=== PATIENT | male | born 1970 | race Caucasian/White ===

== ENCOUNTER 2016-09-10 12:31 | Inpatient (IN) | payer MEDICARE, OTHER ==
[~2016-09-10] VITALS: Ht 170.2 cm; Wt 57.3 kg
[2016-09-10] VITALS (9 sets, daily range): BP systolic 105–152; BP diastolic 81–114; PULSE 69–120; RESP 18–35; O2SAT 94–100
--- NOTE | 2016-09-10 12:36 | ED.REPORT ---
HPI-General Illness Date of Service Sep 10, 2016 ED Provider: Libby Roa MD 46 year old male presents to the ER via EMS complaining of several weeks of persistent shortness of breath. He states that he began getting ill about a month ago with cold-like symptoms that progressively worsened. Two weeks ago he was seen at [facility] ER for symptoms where he was diagnosed with pneumonia and prescribed Azithromycin, steroids, and an inhaler which provided no relief. Associated symptoms include productive cough, lower extremity swelling, and weight loss over the past month which he attributes to being sedentary due to symptoms. Patient denies fever, chills, chest pain, melena, bloody stool, vomiting, and diarrhea. Three days ago his extremities all turned purple and felt cold. He also reports acute on chronic low back pain rated 10/ 10 in severity with associated left lower extremity numbness that was aggravated by the ambulance ride. ASA administered en route. Nursing Notes Stated Complaint: SHORTNESS OF BREATH Chief Complaint: Respiratory Distress Nursing Notes Reviewed: Yes Allergies: Coded Allergies: codeine (Verified Allergy, Mild, "stomach hurts", 09/10/16) No Active Prescriptions or Reported Meds General Time Seen by MD: 12:35 Chief Complaint Other (Shortness of Breath) Hx Obtained From: Patient Arrived By: Ambulance Onset Occurred: More than a week ago... 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 Denies: Congestive heart failure, Hypertension Smoking History Former Smoker Social History Denies IV drug use Alcohol Use: Denies alcohol use Drug Use: THC Review of Systems + varicella as child + solid dysphagia noted over last weeks + wt loss in last weeks, associated with acute illness Full Review of Systems Constitutional: Denies: Chills, Fever Respiratory: Reports: Dyspnea on exertion, Shortness of breath, Wheezing, Denies: Hemoptysis, Non-productive cough, Pleuritic pain Cardiovascular: Denies: Chest pain GI: Denies: Bloody/tarry stool, Diarrhea, Hematochezia, Melena, Nausea, Vomiting Musculoskeletal: Reports: Back pain, Extremity swelling (Lower, bilateral), Lumbar pain, Denies: Joint pain Complete sys rev & neg: except as marked. Physical Exam Vital Signs Vital Signs Date Time Temp Pulse Resp B/P Pulse Ox O2 Delivery O2 Flow Rate FiO2 09/10/16 15:51 115 23 135/103 100 Nasal Cannula 2 09/10/16 14:15 115 25 152/114 99 Nasal Cannula 2 09/10/16 12:34 36.2 116 35 131/106 97 Room Air Initial VS: Reviewed Head / Eyes: Atraumatic, Normocephalic Neck: Supple, Non-tender, Full range of motion Abdomen / GI: Soft, Non-tender, No guarding, No rebound, No distention Extremities: Vascular intact, Neuro intact, No tenderness Skin: Warm, Dry (has scattered 2-3mm erythematous petechia, more on left side. Some more papular. NOT vesicular or pustules.), No cyanosis Neurologic: Alert, Oriented, Nonfocal Psychiatric: Mood/affect normal, Behavior normal, Normal thought content General/Constitutional: Awake, Alert, Well developed, Well nourished Respiratory / Chest: No rales, No rhonchi, No stridor Wheezing / Retractions: Positive: Wheeze insp/exp diffuse (scattered), Wheezing moderate Despite O2 saturation of 100% he has dramatically increased work of breathing, is visibly dyspneic, and using accessory muscles. Cardiovascular: Heart rate NL, Regular rhythm, Heart sounds NL, Cap refill not delayed, Peripheral circulation NL Lower Ext Edema: Positive: Bilateral 1+ Abdomen: No guarding, No rebound Tenderness/Guarding/Rebound: Positive: Tender LUQ... (Mild) Fullness of the LUQ. Back: Full range of motion Flank / Spine / Paraspinal: Positive: Lumbar spine tender... Tenderness of L2 L3 and left paraspinous muscles. Interpretation & Diagnostics Lab Results Interpretation Result Diagram: 09/10/16 1235 09/10/16 1235 Test 09/10/16 12:35 White Blood Count 15.2th/mm3 (3.8-10.1) Red Blood Count 4.85mil/mm3 (4.40-5.80) Hemoglobin 12.8g/dL (13.8-17.2) Hematocrit 39.1% (41.0-50.0) Mean Corpuscular Volume 80.6fL (81-100) Mean Corpuscular Hemoglobin 26.4pg (27.0-35.0) Mean Corpuscular Hemoglobin Concent 32.7% (32.0-37.0) Red Cell Distribution Width 14.4% (12.3-15.4) Platelet Count 423bil/L (150-400) Neutrophils (%) (Auto) 75.3% (40-74) Lymphocytes (%) (Auto) 14.9% (14-46) Monocytes (%) (Auto) 8.2% (4-12) Eosinophils (%) (Auto) 1.0% (0-5) Basophils (%) (Auto) 0.1% (0-3) D-Dimer 1.9mg/L (<0.50) Sodium Level 132mEq/L (134-144) Potassium Level 4.6mEq/L (3.5-5.2) Chloride Level 95mEq/L (97-108) Carbon Dioxide Level 19mmol/L (18-29) Blood Urea Nitrogen 26mg/dL (6-24) Creatinine 0.89mg/dL (0.76-1.27) Estimat Glomerular Filtration Rate 98mL/min (>59) Glucose Level 135mg/dL (60-99) Lactic Acid Level 2.7mmol/L (0.4-2.0) Calcium Level 8.3mg/dL (8.5-10.1) Magnesium Level 1.7mg/dL (1.6-2.6) Total Bilirubin 0.7mg/dL (0.0-1.2) Aspartate Amino Transf (AST/SGOT) 93U/L (0-50) Alanine Aminotransferase (ALT/SGPT) 203U/L (0-44) Alkaline Phosphatase 104U/L (25-150) Troponin T < 0.010ug/L (0.0-0.011) Pro-B-Type Natriuretic Peptide 6325pg/mL (0-121) Total Protein 6.7g/dL (6.4-8.4) Albumin 3.5g/dL (3.4-5.0) Procalcitonin 0.19ng/mL (0.00-0.08) Hold Epstein Top Tube Received (Received) ECG Interpretation ECG Interpretation: Sinus tachycardia, rate 114 LAE LBBB No current chest pain ? S[place] criteria met. Time: 13:02 Interpreted by: ED physician X-Ray Chest Interpretation Chest Xray Interpretation: IMPRESSION: Rounded opacity projected over the right upper lobe which may be related to summation shadow involving several overlying bony structures but pulmonary nodule cannot entirely be excluded. When clinically feasible recommend nonemergent two-view chest radiograph for further assessment. Dictated by: Ke Londono RRA Interpreted: Kiera Uribe MD on 09/10/2016 at 13:13 Transcribed by: DURGA on 09/10/2016 at 13:14 View: Portable, 1 view Interpretation / Wet Read by: Interpret - Radiologist Re-Eval/Medical Decision Med Decision/Clinical Course Acute ill with significant resp distress/dyspnea despite normal oxygenation. No PE, No ID, doubt CHF. No obvious pneumonia but supect atypical pneumonia. No risk factors for TB, HIV/Aids, no travel and hasn't lived in the [place]. Sx worse over last month. Concern for metastatic process is also entertained. Did mention he has been having increasing dysphagia recently. No clear explanation for elevated liver studies or LUQ abd pain (no significant findings in upper abd on chest CT). Electorlyte abnomalities also unexplained at this time. Discussed concerns with clinical picture and diagnostic uncertainty with admitting doc. Will arrange for isolation room. Anticipate ID consult. All concerns, findings and questions are reviewed with patient. Source of Hx: Old records, EMS Time of Eval: 12:48 Re-Evaluation/Progress Note: Discussed the plan of care and need for admission. Patient is amenable to the plan. Consultation : Consulted With: Hospitalist Call Returned at: 16:19 Food Sampler: Will see patient (requests reverse isolation room- will arrange) Counseled Regarding: Diagnosis, Lab results, Need for admission Discharge & Departure Primary Impression: Respiratory distress Additional Impression: Dyspnea Disposition: ADMITTED TO HOSPITAL Discharge Condition All VS Reviewed: Yes Condition: Stable Referrals: Haroon Klein MD (Family) Julien Attestation Portions of this note were transcribed by Celestine Love. I, Dr. Roa, personally performed the history, physical exam and medical decision-making; I reviewed and confirmed the accuracy of the information in the transcribed note. Signed by: Julien Iverson, 09/10/2016 and [time]. copies to: Haroon Klein MD, Shawna L MD Sep 10, 2016 12:36 CELESTINE LOVE Sep 10, 2016 12:50
[2016-09-10 12:55] LABS: BASOPHILS % (AUTO) 0.1 % (0-3); MONOCYTES % (AUTO) 8.2 % (4-12); Mean Corpuscular Hemoglobin 26.4 pg (27.0-35.0); Mean Corpuscular Volume 80.6 fL (81-100); NEUTROPHILS % (AUTO) 75.3 % (40-74); Platelet Count 423 bil/L (150-400)
[2016-09-10] MEDS ORDERED: 0.9% Sodium Chloride 1,000 ML IV ONE ×2 (13:00→14:39)
--- NOTE | 2016-09-10 13:15 | DRSVH ---
PROCEDURE: X-RAY CHEST ONE VIEW, PORTABLE ([id number]) INDICATIONS: CHEST PAIN TECHNIQUE: One view of the chest was acquired. COMPARISON: [facility], CR, XR CHEST 2V AP/PA AND LAT, 08/29/2016, 9:56 PM. [facility], MR, SHOULDER W/CONT (LT), 06/15/2009, 10:22. FINDINGS: Surgical changes and devices: None. Lungs and pleura: 1 cm nodular opacity seen projected over the right upper lobe just adjacent and sup erior to the right second anterior lateral rib, otherwise lungs are clear. Mediastinum: Mediastinal contours appear normal. Heart size is normal. Bones and chest wall: No suspicious bony lesions. Overlying soft tissues appear unremarkable. IMPRESSION: Rounded opacity projected over the right upper lobe which may be related to summation sha nancie involving several overlying bony structures but pulmonary nodule cannot entirely be excluded. Wh en clinically feasible recommend nonemergent two-view chest radiograph for further assessment. Dictated by: Ke Londono RRA Interpreted: Kiera Uribe MD on 09/10/2016 at 13:13 Transcribed by: DURGA on 09/10/2016 at 13:14 Approved by: Kiera Uribe MD, PhD on 09/10/2016 at 17:01
[2016-09-10 13:28] LABS: TROPONIN T < 0.010 ug/L (0.0-0.011)
[2016-09-10 13:44] LABS: Magnesium 1.7 mg/dL (1.6-2.6)
[2016-09-10] MEDS ORDERED: cefTRIAXone Inj 2,000 MG in Dextrose 5% Minibag Plus 50 ML IV ONE (14:40)
[2016-09-10] MEDS ORDERED: Azithromycin Inj 500 MG in Dextrose 5% w/Vial Mate 250 ML IV ONE (14:40)
--- NOTE | 2016-09-10 15:24 | DRSVH ---
PROCEDURE: CT ANGIO CHEST PULMONARY EMBOLISM ([id number]) INDICATIONS: chest pain/tachycardia/elevated ddimer TECHNIQUE: After the administration of intravenous contrast, 2 mm thick sections acquired from the pulmonary api christi to the posterior costophrenic angles. 3-dimensional maximum intensity projection (MIP) coronal a nd sagittal reformats were then acquired through the thorax. For radiation dose reduction, the follo wing was used: automated exposure control, adjustment of mA and/or kV according to patient size. COMPARISON: [facility], CR, XR CHEST 1VW (PORTABLE), 09/10/2016, 12:36. FINDINGS: Image quality: Excellent. Pulmonary arteries: Pulmonary arteries are normal in size, and demonstrate no intraluminal filling d efects to suggest central pulmonary embolism. Lungs and pleura: 0.8 x 1.6 cm area of masslike consolidation in the anterior right upper lobe. Atele ctasis is noted in the dependent portions of the lungs. Small bilateral right greater than left pleur al effusions are noted. Apical emphysematous changes are noted. No pneumothorax. Central and periphe ral airways are patent. Mediastinum: Heart size is normal, without pericardial effusion. 1.6 cm subcarinal mediastinal lymph node is noted. Prominent aorticopulmonary window and prevascular lymph nodes are noted. No hilar felix nopathy. Thoracic aorta is normal in caliber and enhancement. Esophagus is normal in caliber, witho ut hiatal hernia. Bones and chest wall: No suspicious bony lesions. Ribs and thoracic spine appear intact throughout. Thyroid gland is within normal limits in. No axillary or supraclavicular adenopathy. Abdomen: Visualized upper abdominal solid organs appear normal in the early arterial phase of enhanc ement. IMPRESSION: 1. No pulmonary embolus. 2. Bilateral pleural effusions. 3. Masslike consolidation in the anterior right upper lobe finding may represent subsegmental atelect asis, infection/inflammation or neoplastic process. Recommend repeat CT scan of the chest in 3 months . 4. Mediastinal lymphadenopathy which could be reactive or neoplastic. 5. Bilateral lung emphysematous disease. Dictated by: Kiera Uribe MD, PhD on 09/10/2016 at 15:04 Approved by: Kiera Uribe MD, PhD on 09/10/2016 at 15:22
[2016-09-10] MEDS ORDERED: Alum-Mag Hydrox-Simeth 30 mL Suspension PO PRN ×2 (16:55→19:35)
[2016-09-10] MEDS ORDERED: Ondansetron 2 mg/mL 2 mL Inj IVPUSH PRN (16:55)
[2016-09-10] MEDS: 0.9% Sodium Chloride 1,000 ML IV SCH ×2 (16:58→20:11)
--- NOTE | 2016-09-10 17:56 | ABG ---
DateTimeAnalyzed 17:50:00 -_ pH ____7.448 - 7.350 7.450 pCO2 ___28.4__ -mmHg 35.0 45.0 pO2 119 -mmHg 69.0 116 HCO3- ___19.4__ -mmol/L 22.0 26.0 ABE ___-3.2__ -mmol/L -2.0 2.0 tHb ___12.3__ -g/dL O2Hb ___96.5__ -% COHb ____1.4__ -% MetHb ____0.7__ -% sO2 ___98.6__ -% 25.0 FIO2 ___21.0__ -% Drawn By btl - Date/Time Notified____ 17:55:00 -_ Liter_Flow ____3.0__ -L/min Oxygen Device 1 __CANNULA - Notified By btl - Notified Whom Dr Laursen - B 747 -mmHg tO2 ___16.9__ -Vol% Tyler test _Positive -
[2016-09-10 19:20] LABS: BASOPHILS % (AUTO) 0.1 % (0-3); EOSINOPHILS % (AUTO) 1.5 % (0-5); MONOCYTES % (AUTO) 6.9 % (4-12); Mean Corpuscular Hemoglobin 26.7 pg (27.0-35.0); Mean Corpuscular Volume 81.2 fL (81-100); Platelet Count 429 bil/L (150-400)
[2016-09-10] MEDS ORDERED: Piperacillin-Tazo 3.375 Gm Inj 3.375 GM in Dextrose 5% Minibag Plus 50 ML IV SCH (19:35)
[2016-09-10] MEDS ORDERED: Albuterol 2.5 mg/3 mL Inhalation Solution NEB PRN (19:35)
[2016-09-10] MEDS ORDERED: Polyethylene Glycol (PEG) 17 Gm Powder PO PRN (19:35)
--- NOTE | 2016-09-10 20:16 | PCM.HPMED ---
Subjective Date of Service Sep 10, 2016 Primary Provider: Admitting Physician: Mariama Cotto MD Primary Care Physician: Jeovanny Leahy MD Attending Physician: Mariama Cotto MD Admit Status: From the Emergency Department, Full Admit, Remote Telemetry Chief Complaint: Increasing shortness of breath History of Present Illness: This is a 46-year-old male who presents with one-month history of progressive shortness of breath. He was seen by his primary care provider Dr. Jeovanny Leahy and also was seen at [facility] was given an inhaler steroids and by mouth azithromycin without any significant improvement of his symptoms he has had some weight loss over the last month he denies any alteration in bowel movements denies any fevers chills or chest pain. He does admit to intermittently productive cough. He is not a very good historian. White count 15.2 with 85% polys 15% lymphs sodium is 132 he did have CTA of chest which reveals no pulmonary emboli bilateral pleural effusions small with a masslike consolidation in the anterior right upper lobe finding which may represent subsegmental atelectasis, infection inflammation or neoplastic process. He was also found to have mediastinal lymphadenopathy which could be reactive or neoplastic. Review of Systems: All other review of systems are reviewed and are negative except for as in history of present illness Allergies Coded Allergies: codeine (Verified Allergy, Mild, "stomach hurts", 09/10/16) Home Medications None currently PMH History of chronic low back pain status post traumatic logging injury History of tobacco use Social History Hx Alcohol Use: No Hx Substance Use: No Smoking Status: Former Smoker Living Arrangement: with Family Exam Vital Signs Vital Sign - Last Date Time Temp Pulse Resp B/P Pulse Ox O2 Delivery O2 Flow Rate FiO2 09/10/16 19:28 35.8 69 18 134/99 94 Nasal Cannula 09/10/16 19:21 1 Exam Constitutional: Ill-appearing middle-age male Head: Normocephalic atraumatic Eyes: PERRLA DC Neck: Carotids 2+ over 4 without bruits Chest: Scattered rhonchi Cor: Tachycardic S1 and S2 without murmur Abdomen: Soft mild tenderness in the left upper quadrant no rebound no guarding bowel sounds are present Extremities exam: Trace bilateral pedal edema Skin: No rashes Psych: Patient appears anxious Neuro: Alert and oriented 3, motor and sensory are intact bilaterally Lab and Diagnostics Labs Laboratory Tests 72 Hours Test 09/10/16 12:35 09/10/16 17:50 09/10/16 20:00 White Blood Count 15.2th/mm3 (3.8-10.1) 13.1th/mm3 (3.8-10.1) Red Blood Count 4.85mil/mm3 (4.40-5.80) 4.95mil/mm3 (4.40-5.80) Hemoglobin 12.8g/dL (13.8-17.2) 13.2g/dL (13.8-17.2) Hematocrit 39.1% (41.0-50.0) 40.2% (41.0-50.0) Mean Corpuscular Volume 80.6fL (81-100) 81.2fL (81-100) Mean Corpuscular Hemoglobin 26.4pg (27.0-35.0) 26.7pg (27.0-35.0) Mean Corpuscular Hemoglobin Concent 32.7% (32.0-37.0) 32.8% (32.0-37.0) Red Cell Distribution Width 14.4% (12.3-15.4) 14.5% (12.3-15.4) Platelet Count 423bil/L (150-400) 429bil/L (150-400) Neutrophils (%) (Auto) 75.3% (40-74) 72.0% (40-74) Lymphocytes (%) (Auto) 14.9% (14-46) 19.2% (14-46) Monocytes (%) (Auto) 8.2% (4-12) 6.9% (4-12) Eosinophils (%) (Auto) 1.0% (0-5) 1.5% (0-5) Basophils (%) (Auto) 0.1% (0-3) 0.1% (0-3) D-Dimer 1.9mg/L (<0.50) Sodium Level 132mEq/L (134-144) 132mEq/L (134-144) Potassium Level 4.6mEq/L (3.5-5.2) 4.3mEq/L (3.5-5.2) Chloride Level 95mEq/L (97-108) 96mEq/L (97-108) Carbon Dioxide Level 19mmol/L (18-29) 20mmol/L (18-29) Blood Urea Nitrogen 26mg/dL (6-24) 24mg/dL (6-24) Creatinine 0.89mg/dL (0.76-1.27) 0.97mg/dL (0.76-1.27) Estimat Glomerular Filtration Rate 98mL/min (>59) 89mL/min (>59) Glucose Level 135mg/dL (60-99) 149mg/dL (60-99) Lactic Acid Level 2.7mmol/L (0.4-2.0) 2.9mmol/L (0.4-2.0) Calcium Level 8.3mg/dL (8.5-10.1) 8.0mg/dL (8.5-10.1) Magnesium Level 1.7mg/dL (1.6-2.6) Total Bilirubin 0.7mg/dL (0.0-1.2) 0.5mg/dL (0.0-1.2) Aspartate Amino Transf (AST/SGOT) 93U/L (0-50) 89U/L (0-50) Alanine Aminotransferase (ALT/SGPT) 203U/L (0-44) 211U/L (0-44) Alkaline Phosphatase 104U/L (25-150) 117U/L (25-150) Troponin T < 0.010ug/L (0.0-0.011) Pro-B-Type Natriuretic Peptide 6325pg/mL (0-121) Total Protein 6.7g/dL (6.4-8.4) 6.8g/dL (6.4-8.4) Albumin 3.5g/dL (3.4-5.0) 3.4g/dL (3.4-5.0) Procalcitonin 0.19ng/mL (0.00-0.08) Hold Epstein Top Tube Received (Received) Received (Received) Hold Purple Top Tube Received (Received) Hold Blue Top Tube Received (Received) Hold [place] Top Tube Received (Received) Result Diagram: 09/10/[id number] X-Rays, CTs and MRIs PROCEDURE: CT ANGIO CHEST PULMONARY EMBOLISM ([id number]) INDICATIONS: chest pain/tachycardia/elevated ddimer TECHNIQUE: After the administration of intravenous contrast, 2 mm thick sections acquired from the pulmonary apices to the posterior costophrenic angles. 3-dimensional maximum intensity projection (MIP) coronal and sagittal reformats were then acquired through the thorax. For radiation dose reduction, the following was used: automated exposure control, adjustment of mA and/or kV according to patient size. COMPARISON: [facility], CR, XR CHEST 1VW (PORTABLE), 09/10/2016, 12: 36. FINDINGS: Image quality: Excellent. Pulmonary arteries: Pulmonary arteries are normal in size, and demonstrate no intraluminal filling defects to suggest central pulmonary embolism. Lungs and pleura: 0.8 x 1.6 cm area of masslike consolidation in the anterior right upper lobe. Atelectasis is noted in the dependent portions of the lungs. Small bilateral right greater than left pleural effusions are noted. Apical emphysematous changes are noted. No pneumothorax. Central and peripheral airways are patent. Mediastinum: Heart size is normal, without pericardial effusion. 1.6 cm subcarinal mediastinal lymph node is noted. Prominent aorticopulmonary window and prevascular lymph nodes are noted. No hilar adenopathy. Thoracic aorta is normal in caliber and enhancement. Esophagus is normal in caliber, without hiatal hernia. Bones and chest wall: No suspicious bony lesions. Ribs and thoracic spine appear intact throughout. Thyroid gland is within normal limits in. No axillary or supraclavicular adenopathy. Abdomen: Visualized upper abdominal solid organs appear normal in the early arterial phase of enhancement. IMPRESSION: 1. No pulmonary embolus. 2. Bilateral pleural effusions. 3. Masslike consolidation in the anterior right upper lobe finding may represent subsegmental atelectasis, infection/inflammation or neoplastic process. Recommend repeat CT scan of the chest in 3 months. 4. Mediastinal lymphadenopathy which could be reactive or neoplastic. 5. Bilateral lung emphysematous disease. Dictated by: Kiera Uribe MD, PhD on 09/10/2016 at 15:04 Approved by: Kiera Uribe MD, PhD on 09/10/2016 at 15:22 Assessment & Plan # Increasing dyspnea with mass in right upper lobe, subacute, worsening, present on admission Proceed with placing in TB precautions Check AFB stains 3 Check a lipid cultures, check QuantiFERON [place] Check another sputum studies along with Legionella PCR respiratory viruses pneumococcal Consider infectious disease consultation in the a.m. We will cover with IV Zosyn for possible anaerobes, along with IV Levaquin. Of note patient failed outpatient oral azithromycin Monitor blood gases as needed Also need to consider neoplastic process # Elevated LFTs, acute, present on admission Check abdominal ultrasound Check acute hepatitis panel and HIV status # DVT prophylaxis Place on subcutaneous prophylactic anticoagulant # CODE STATUS Full code Resuscitation Status: CPR: Attempt Resuscitation Time spent 60 minutes Mariama Cotto MD Sep 10, 2016 20:16
[2016-09-10 20:35] LABS: Magnesium 1.8 mg/dL (1.6-2.6)
[2016-09-10 20:47] LABS: TROPONIN T < 0.010 ug/L (0.0-0.011)
--- NOTE | 2016-09-10 21:00 | NUR ---
ADMIT Patient admit from ED for SOB. Patient poor historian, answers in short and without detail. Reports increasing SOB. Maintain sats in low 90s on RA. Placed on oxymask 2L for comfort. Requesting more pain medications. Had multiple doses of morphine in ED, pupils pinpoint upon arrival and falling asleep during assessment. Lactic elevated. Oriented to room and call light, using appropriately.
[2016-09-10] MEDS ORDERED: 0.9% Sodium Chloride 250 ML ONE (21:45)
--- NOTE | 2016-09-10 21:58 | DRSVH ---
PROCEDURE: US ABDOMEN ([id number]) INDICATIONS: possible splenomegaly and elevated LFTs TECHNIQUE: Real-time scanning was performed of the abdominal and retroperitoneal organs, with image documentatio n. COMPARISON: [facility], CT, ABD/PELVIS W/CON (PNL), 07/31/2012, 19:27. [facility], CT, CT ANGIO CHEST PE, 09/10/2016, 14:47. FINDINGS: Liver: Liver is mildly enlarged at 18.2 cm in craniocaudad size and homogeneous in echotexture. Gallbladder: The gallbladder appears normal measuring up to 7-8.7 mm in thickness along the gallblad cuate wall, and quality of visualization was somewhat limited by patient hyperventilated and Biliary ducts: Intrahepatic bile ducts are non-dilated. Extrahepatic bile duct caliber measures 2.5 mm. Normal is 6-7 mm or less in diameter, or 10 mm or less post-cholecystectomy. Pancreas: Visualized portions of the pancreas are sonographically normal but much of the pancreas wa s poorly seen. Spleen: Spleen is normal in size at 8.9 cm craniocaudad length and homogeneous in echotexture. Kidneys: Kidneys are normal in size and echotexture. Right kidney measures 10.5 cm long; left kidne y measures 9.6 cm long. No hydronephrosis or nephrolithiasis. No solid masses. Quality of visualiz ation was limited by patient hyperventilation. Aorta: Visualized aorta is normal in caliber at less than 3 cm. Iliacs: Not visualized due to bowel gas and patient hyperventilated. IVC: Intrahepatic inferior vena cava is patent. Miscellaneous: No free abdominal fluid. Bilateral pleural effusions noted, only partially visualize d. IMPRESSION: Limited study due to patient hyperventilation, and inability to suspend respiration. Mi ld hepatomegaly without splenomegaly. Significant portions of the peritoneal space and the retroperi toneum are poorly seen due to bowel gas and hyperventilation. The gallbladder wall is abnormally thickened at 7-8.7 mm in thickness, but no gallstones or biliary d istention is associated. As noted, however, quality of visualization for non-calcified gallstones wa s quite limited. Dictated by: Erickson Sabillon M.D. on 09/10/2016 at 21:52 Approved by: Erickson Sabillon M.D. on 09/10/2016 at 21:56
[2016-09-10] MEDS: levoFLOXacin Inj 750 MG in IV Premix 1 EACH IV SCH (22:02)
[2016-09-11] VITALS (10 sets, daily range): BP systolic 115–141; BP diastolic 79–119; PULSE 118–125; RESP 18–32; O2SAT 94–100
[2016-09-11 00:07] LABS: APPEARANCE,URINE CLEAR (CLEAR,HAZY); COLOR,URINE DARK YELLOW (YELLOW)
[2016-09-11 00:08] LABS: OCCULT BLOOD,URINE NEGATIVE (NEGATIVE); UROBILINOGEN,URINE NORMAL (NORMAL)
[2016-09-11] MEDS ORDERED: 0.9% Sodium Chloride 500 ML IV ONE (01:05)
--- NOTE | 2016-09-11 01:16 | ABG ---
DateTimeAnalyzed 01:11:00 -_ pH ____7.262 - 7.350 7.450 pCO2 ___47.4__ -mmHg 35.0 45.0 pO2 ___27.7__ -mmHg 69.0 116 HCO3- ___20.7__ -mmol/L 22.0 26.0 ABE ___-5.9__ -mmol/L -2.0 2.0 tHb ___11.9__ -g/dL O2Hb ___34.4__ -% COHb ____0.8__ -% MetHb ____1.0__ -% sO2 ___35.0__ -% 25.0 FIO2 ___21.0__ -% Drawn By MD - B 751 -mmHg tO2 ____5.8__ -Vol%
--- NOTE | 2016-09-11 01:36 | ABG ---
DateTimeAnalyzed 01:31:00 -_ pH ____7.414 - 7.350 7.450 pCO2 ___25.5__ -mmHg 35.0 45.0 pO2 ___93.0__ -mmHg 69.0 116 HCO3- ___16.0__ -mmol/L 22.0 26.0 ABE ___-6.8__ -mmol/L -2.0 2.0 tHb ___11.9__ -g/dL O2Hb ___94.9__ -% COHb ____1.4__ -% MetHb ____0.7__ -% sO2 ___96.9__ -% 25.0 FIO2 ___21.0__ -% Drawn By MD - Date/Time Notified____ 01:35:00 -_ Liter_Flow ____2.0__ -L/min Oxygen Device 1 __CANNULA - Notified By MD - Notified Whom RN J.KERWIN - B 751 -mmHg tO2 ___16.0__ -Vol% Tyler test N/A -
--- NOTE | 2016-09-11 02:00 | NUR ---
TRANSFER Patient transfer to [facility] for increasing lactic, tachycardia and tachypnea. Patient received a bolus of 500cc normal saline prior to transfer. Patient's breathing appears less labored at time of transfer. Report given to Abu, care ongoing.
[2016-09-11] MEDS: 0.9% Sodium Chloride 1,000 ML IV SCH ×4 (02:11→20:41)
[2016-09-11] MEDS: Piperacillin-Tazo 3.375 Gm Inj 3.375 GM in Dextrose 5% Minibag Plus 50 ML IV SCH ×3 (05:54→23:54)
[2016-09-11 06:04] LABS: Mean Corpuscular Hemoglobin 29.4 pg (27.0-35.0); Mean Corpuscular Volume 92.5 fL (81-100)
[2016-09-11 06:26] LABS: BASOPHILS % (AUTO) 0.1 % (0-3); EOSINOPHILS % (AUTO) 8.8 % (0-5); MONOCYTES % (AUTO) 10.7 % (4-12); NEUTROPHILS % (AUTO) 59.6 % (40-74); Platelet Count 157 bil/L (150-400)
--- NOTE | 2016-09-11 06:35 | NUR ---
Transfer Pt arrived from [facility] to U # 2018 approx at 0300. Pt is tachyapneic but denies SOB. Oxymask at 2L. SPO2 mid 90s. HR 110s-120s unchanged from [facility]. Pt C/O back pain that subsided with Morphine. Airborne precautions active. No overt complications noted.
--- NOTE | 2016-09-11 11:31 | CONS ---
[address] [address] CONSULTATION REPORT PATIENT: EVENS PRIDE : 1970 MR#: [id number] ADMIT: 09/10/2016 JOB ID: [id number] DATE OF SERVICE: 09/11/2016 INFECTIOUS DISEASE CONSULTATION: I thank Dr. Paz for this timely consult. REASON FOR CONSULTATION: Weight loss and profound shortness of breath in a young man. 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 He has been in reasonable health, he reports, basically all of his life, except for some back surgery following a logging injury. 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 He then reports the insidious onset of an illness characterized primarily by shortness of breath. He reports that there has been fairly minimal cough except when he lays down at night. The cough is usually nonproductive but occasionally some greenish area is seen in the sputum. He had a single night sweat during this month long illness and denies having fevers or chills. He does not have pleuritic chest pain except on rare occasions, and the pleuritic pain seems to be substernal rather than in the lateral pleural areas. At the onset of this illness, he reports a terrific headache but that has gradually faded away. There has been no associated sore throat. He also notes that there has been a considerable amount of nausea with this illness but no vomiting or diarrhea. He has had a bit of left lower quadrant pain over the past several days in association with this illness. He denies any swollen lymph nodes. He does not have a scale and does not check his weight but his clothes are fitting more loosely than before, and he thinks he has lost an appreciable amount of weight. He also notices that at times his feet are swollen, and this has never been a problem for him. In terms of cardiac risk factors, the patient was a smoker, but quit about a decade ago. His urine tox screen was positive for opiates and amphetamines. He states that because he was so short of breath a friend who abuses meth gave him some and he consumed it orally in an attempt to improve his breathing but it did not help, so he quit. He states he never injects any kind of substance and has never had any issues with drug addiction. He does not drink alcohol. As for his life history, he started in [place] but spent considerable time in [place], where his dad was in the [employer]. About 20 years ago he moved to [facility] and now resides in a small community of [facility] in [facility]. He lives with his girlfriend of 17 years who is said to be healthy. PAST MEDICAL HISTORY: Lumbar spine surgery. SOCIAL HISTORY: The patient quit smoking 10 years ago. He denies alcohol consumption or any recent cigarette smoking. He states his urine screen is positive because some friends advocated he try some meth to improve his respiratory difficulties which started a month ago and otherwise, he has no history of using heroin, meth, cocaine, or any other illicit substance. He lives with his girlfriend of 17 years and her children. FAMILY HISTORY: Negative for TB including parents, siblings and more distant relatives. REVIEW OF SYSTEMS: Done in its entirety. The patient states he had some severe headaches when this all started but they have dissipated. He denies any change in vision or any discharge from the eyes. He has no sore throat. No sores in the mouth and no trouble swallowing at any time. He denies swollen lymph nodes in the neck or groin or under his arms. His neck has not been a problem for him. He is constantly short of breath, and that has been getting worse for a month. He has minimal substernal pleuritic type chest pain. Minimal cough, which is made worse when he lays down. He does have nausea, which has been a constant feature of this illness, and occasional left lower quadrant pain. There has been no vomiting. No diarrhea. No hematuria, pneumaturia, or dysuria. He has noted swelling of the lower extremities, especially the feet and ankles, as well as some occasional pins and needles feelings in his feet, over the course of this month long illness. He has had no swelling or dysfunction of his joints. He has constant low back pain and has had lumbar spine surgery in the past. He has had no skin rash with this. He reports that he has been so sick and so short of breath at times in the past month that he has had near syncope but never had syncope or seizure. He has not been confused as part of this illness. Remainder of the review of systems is negative. PHYSICAL EXAMINATION: Reveals a consistently afebrile gentleman. Temperature 36.4 right now. His pulse is 123. Respiratory rate is approximately 30, and he appears quite short of breath sitting up in bed. When I attempted to lay him down to examine his abdomen, he became much worse. His blood pressure is 141/119. He is saturating well but on a 6 L face mask, which he cannot take off for any length of time. Examination of the head reveals obvious temporal wasting. His eyes are notable for pale conjunctivae without scleral icterus. His nose is normal. His oral cavity has no thrush, pharyngitis, or hairy leukoplakia. His neck is without adenopathy and quite supple. His lungs are notable for scattered rales at the bases bilaterally. No wheezing is heard. Cardiac tones very tachycardic without appreciable murmur. The heart rate is regular. His abdomen is notable for the absence of hepatosplenomegaly. There is tenderness in the left lower quadrant but I could not appreciate a mass. There is no suprapubic fullness. Penis and scrotum were normal. There is no evidence for synovitis in any joint. His hands do not have any peripheral stigmata of endocarditis, though there is questionably a bit of clubbing on his hands bilaterally. His lower extremities notable for 1+ edema involving the feet and ankles. He has normal sensation in his extremities and good motor strength throughout. He is alert and oriented and able to give a lucid history. No thyromegaly is appreciated. LABORATORIES: Include a white count of 7700, hematocrit 38, platelet count was supposedly 430 yesterday and 157 today. He does have 8% eosinophils which were not present when he came in. His labs include a creatinine of 0.78, glucose 133. LFT are normal. Albumin 3.4. Procalcitonin is less than 0.1 today. Yesterday's procalcitonin was 0.18. Urine tox screen was positive for opiates, amphetamines and cannabinoids. Extensive serologic studies are pending. The patient's pending serologies include hep A, B, C serologies, HIV and QuantiFERON Gold. Micro studies to date include negative blood cultures. Respiratory viral PCR is positive for coronavirus 43. Urine pneumococcal and legionella antigens are negative. MRSA screen is pending. An EKG which I have just reviewed shows a left bundle branch block with pronounced sinus tachycardia. IMAGING: Includes a chest x-ray done yesterday which shows a right upper lobe abnormality, as well as relatively clear lung dukes. CT angiogram provides much for detail, of course. It shows no PE but there are bilateral pleural effusions bigger on the right than left. Also noted is a small mass in the anterior right upper lobe which measures about 0.8 x 1.6 cm. Mediastinal adenopathy is also noted. An abdominal ultrasound was done. Mild hepatomegaly was noted without splenomegaly. Overall, the quality was poor. IMPRESSION: This is a fascinating case of a young man who was in good health a month ago who has had a month of progressive shortness of breath, weight loss, weakness, nausea and some peripheral edema. A large body of diagnostic studies are still pending. He has a small right upper lobe mass, as well as bilateral pleural effusions which are not huge but are easily seen on the CT scan. He also has some left lower quadrant pain. His history is bothersome in that the patient gets much more short of breath, by his report, when he lies down, and he also has a left bundle branch block on the EKG I just reviewed. The differential diagnosis here is broad. Certainly, this could represent an infection but I do not think in any way this is a typical bacterial pneumonia. The patient was treated as an outpatient with a course of azithromycin, which made no difference, and his chest x-ray, CT and laboratories do not look like a typical bacterial pneumonia. Tuberculosis is possibly here, though I think a bit unlikely. Also possible would be cryptococcus or some other fungal process. He grew up in [place], so strongyloides would be another long shot diagnosis but none of these seem terribly probable. Noninfectious causes are of concern here, and I wonder whether or not the patient might have lymphoma. He has mediastinal and hilar adenopathy which could go along with that diagnosis, and we do not have a clear picture yet of what is going on in his abdomen. A primary lung malignancy is also possible, though he has not smoked in a decade and would be young for this diagnosis but certainly not outside the realm of possibility. Another noninfectious cause which concerns me would be the possibility of congestive heart failure. This patient does not seem to have any clear cut risk factors aside from his past smoking but he does report paroxysmal nocturnal dyspnea and orthopnea and really will not even tolerate laying down flat to be examined. He does have a left bundle branch block, which almost always indicates cardiac pathology. RECOMMENDATIONS: 1. The patient is currently receiving IV levothyroxine and Zosyn. I think these will prove to be of no value but we could continue for a day or so while we wait for our cultures to mature but I think will likely be stopping these tomorrow or the next day. 2. Diagnostic studies that I have ordered include an echocardiogram, as well as a BNP, to evaluate the possibility of CHF or endocarditis. 3. Diagnostic studies for infection that I have ordered include crypto antigen and strongyloides antibody. 4. I have ordered an IR-directed ultrasound and ordered specific tests to be obtained on any pleural fluid which would include LDH, protein level, cell count, AFB and routine cultures, and bacterial and mycobacterial PCR on any obtained pleural fluid. 5. I have also ordered a CT scan of the abdomen, as I am concerned about his left lower quadrant pain and still wonder if we may find evidence of diffuse adenopathy and lymphoma. 6. I apologize in advance for ordering so many diagnostic tests at once but this young man is actually quite critically ill, as his respiratory rate is 30 and his pulse is 120 and as of yet, we do not have any clear appreciation for what is going on with him. I think the probability that this is all a typical bacterial pulmonary process is almost zero and that this will represent mycobacterial or fungal infection, congestive heart failure or endocarditis, or cancer of some type. Thank you very much for this most intriguing consult which I spent over an hour on, evaluating, coordinating care and reviewing CT scans with others.
--- NOTE | 2016-09-11 11:36 | PCM.PNMED ---
Subjective Date of Service Sep 11, 2016 Subjective Mr. Alvarez is a 46-year-old male with history of tobacco use who presents with one -month history of progressive shortness of breath and weight loss over the past 1 month. Today is hospital day 2. Per nursing, patient had 10/10 chest pain, which was improved with morphine. EKG was ordered and troponin repeated. Patient was then given a chewable full strength aspirin. Patient expressed that his chest pain improved to a 5/10 and was a pressure. He denies that it radiates to his back. He is short of breath. He has had a productive cough for the past few months and increased fatigue recently. He has not weighed himself but feels like he lost weight. He states that his chest feels bigger and that the waist band of his pants is not tighter. He denies hemoptysis and any known TB exposure. He has not traveled out of the country since the to [place]. 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 He reports some swelling of his feet but no leg swelling. He also states that a friend gave him meth since he was not feeling well. He is a former smoker. He denies any family history of heart disease. Exam Vital Signs Vital Sign - Last Date Time Temp Pulse Resp B/P Pulse Ox O2 Delivery O2 Flow Rate FiO2 09/11/16 10:01 125 09/11/16 08:14 18 100 OxyMask 6.00 09/11/16 07:58 36.4 141/119 Intake and Output 09/10/16 09/10/16 09/11/16 Cumulative From/Thru 15:00 23:00 07:00 09/10/16 12:34 - 09/11/16 05:56 Intake Total 2000 ml 895 ml 2895 ml Output Total 400 ml 400 ml Balance 2000 ml 495 ml 2495 ml Intake Oral 400 ml 400 ml IV Total 2000 ml 495 ml 2495 ml Output Urine Total 400 ml 400 ml Exam Vital signs: Patient desaturated to 88% with oxygen mask on General: Moderate distress, well-developed, thin, appropriately interactive HEENT: Normocephalic, atraumatic. External ears without defect. Pupils equal, round, and reactive to light and accommodation. Anicteric sclerae, moist conjunctivae, and no lid lag. Neck: Supple with full range of motion. No lymphadenopathy or thyromegaly. Cardiovascular: Regular rate and rhythm with no murmurs, rubs, or gallops appreciated Pulmonary: Tachypneic. Increased respiratory effort with use of accessory muscles.Clear to auscultation bilaterally with no crackles, wheezes, or rhonchi. Abdomen: Bowel tones present. Soft, nontender, nondistended. No hepatosplenomegaly or masses appreciated. Extremities: No clubbing, cyanosis, edema, or lymphadenopathy appreciated. Skin: Erythematous papular generalized rash on anterior thorax. Normal temperature, turgor, and texture; no ulcers, or subcutaneous nodules appreciated. Neurological: Cranial nerves grossly intact. Normal muscle strength, tone, and bulk. No known gait impairment. Psychiatric: Normal mood and affect. Alert and oriented to person, place, and time. IVs and Medications Medications Reviewed: Medications were reviewed in detail Lab and Diagnostics Result Diagram: 09/11/16 0518 09/11/16 0835 X-Rays, CTs and MRIs PROCEDURE: X-RAY CHEST ONE VIEW, PORTABLE IMPRESSION: Rounded opacity projected over the right upper lobe which may be related to summation shadow involving several overlying bony structures but pulmonary nodule cannot entirely be excluded. When clinically feasible recommend nonemergent two-view chest radiograph for further assessment. Approved by: Kiera Uribe MD, PhD on 09/10/2016 at 17:01 PROCEDURE: CT ANGIO CHEST PULMONARY EMBOLISM IMPRESSION: 1. No pulmonary embolus. 2. Bilateral pleural effusions. 3. Masslike consolidation in the anterior right upper lobe finding may represent subsegmental atelectasis, infection/inflammation or neoplastic process. Recommend repeat CT scan of the chest in 3 months. 4. Mediastinal lymphadenopathy which could be reactive or neoplastic. 5. Bilateral lung emphysematous disease. Approved by: Kiera Uribe MD, PhD on 09/10/2016 at 15:22 PROCEDURE: US ABDOMEN IMPRESSION: Limited study due to patient hyperventilation, and inability to suspend respiration. Mild hepatomegaly without splenomegaly. Significant portions of the peritoneal space and the retroperitoneum are poorly seen due to bowel gas and hyperventilation. The gallbladder wall is abnormally thickened at 7-8.7 mm in thickness, but no gallstones or biliary distention is associated. As noted, however, quality of visualization for non-calcified gallstones was quite limited. Approved by: Erickson Sabillon M.D. on 09/10/2016 at 21:56 Echocardiogram Report Interpretation Summary The left ventricle is mildly dilated. Left ventricular systolic function is severely reduced. The ejection fraction is estimated to be 10-15%. There is severe global hypokinesis of the left ventricle. The E/E' ratio is severely increased, suggesting possible increased filling pressures. The right ventricle is mildly dilated. Right ventricular systolic function is severely reduced. The right ventricular systolic pressure is estimated at 43 mmHg assuming a right atrial pressure of 15 mm Hg. Both atria are severely dilated. There is moderate mitral regurgitation. There is moderate tricuspid regurgitation. There is no other significant valvular heart disease. The aortic root is mildly dilated. Reading Physician:PM Venous blood gas DateTimeAnalyzed 11:51:00 -_ pH ____7.419 - 7.350 7.450 pCO2 ___25.9__ -mmHg 35.0 45.0 pO2 103 -mmHg 69.0 116 HCO3- ___16.4__ -mmol/L 22.0 26.0 12-lead ECG Sinus tachycardia, left bundle branch block Assessment & Plan Mr. Alvarez is a 46-year-old male with history of tobacco use who presents with one -month history of progressive shortness of breath and weight loss over the past 1 month. Today is hospital day 2. 1. Acute hypoxic respiratory failure, present on admission, active -Patient de-saturated to 88% pulse oximetry with oxygen mask on. Patient was also tachypneic with a respiratory rate of 26 this morning. -Patient has increasing dyspnea with mass in right upper lobe seen on chest x- ray and CT scan -Patient failed outpatient oral azithromycin and inhaler steroids. -Etiology of dyspnea is likely multifactorial, secondary to heart failure and to an infection -Patient also reports weight loss but denies hemoptysis -Venous blood gas shows pH 7.419, pCO2 25.9, pO2 103, HCO3 16.4 -AFB stains times three, lipid, and QuantiFERON [facility] cultures performed -Sputum studies along with Legionella PCR, respiratory viruses, and pneumococcal performed -Legionella PCR negative -Patient is positive for coronavirus -Lactic acid initially 2.7 -Patient started on IV Piperacillin/Tazobactam on 09/11/2016 and IV Levofloxacin on 09/10/2016. -Continue monitor blood gases as needed and to monitor patient's vital signs -Thoracentesis performed today for further evaluation of pleural effusion -Infectious Disease consulted and following patient. His time and recommendations are appreciated. -Patient initially placed on tuberculosis precautions but removed from tuberculosis precautions today -Patient was transferred to the CCU 2. Right upper lob lung mass, chronicity unknown, present on admission, active -Etiology of lung mass is unknown. Differential diagnosis of lung mass includes but not limited to infectious granuloma such as mycobacterial or fungal, abscess -forming bacteria, hamartoma, sarcoidosis, rounded atelectasis, or a neoplastic process -Work-up for etiology of the lung mass is described above for possible cause of patient acute respiratory failure -Based on results of tests and an infectious cause is unlikely, then patient may need a repeat CT scan in 3 months 3. Acute systolic congestive heart failure (heart failure with reduced ejection fraction), present on admission, active -Patient has no known history of cardiac disease prior to today -Patient had an echocardiogram done today that shows ejection fraction of 10-15% , left ventricular and right ventricular systolic function is severely reduced, both atria are severely dilated, severe global hypokinesis of left ventricle, and moderate mitral and tricuspid regurgitation. -Differential diagnosis of heart failure includes but not limited to viral cardiomyopathy, chronic valvular disease, amphetamine-induced, -Likely contributing to patient's respiratory failure and possibly contributing to patient's reported weight loss -BNP elevated at 5521 -Patient started on IV furosemide 40 mg BID at 8:00 AN and at 2:30 PM and on IV enalaprilat 1.25 mg every 6 hours -Patient was not tolerating PO medications so PO captopril was discontinued and replaced with the IV enalaprilat. -Cardiology consulted and following patient. Their time and recommendations are appreciated. 4. Acute chest pain, present on admission, resolved -Likely secondary to respiratory distress -Patient experienced 10/10 chest pain with improvement after morphine -Sinus tachycardia with left bundle branch block on EKG -Troponin times two were negative 5. Essential Hypertension, present on admission, active -Patient's diastolic blood pressure has been in the 100's -Initial blood pressure of 131/106 -Patient started on furosemide and enalaprilat as above 6. Acute elevated liver function tests, resent on admission, active -AST 1149, ALT 1244 today -Abdominal ultrasound shows that the gallbladder wall is abnormally thickened but no gallstones or biliary distention. Visualization for non-calcified gallstones was quite limited. -Acute hepatitis panel and HIV status are performed and pending 7. Tobacco use -Patient reports tobacco cessation Acetaminophen for mild pain when necessary. Bowel regimen Senna and Miralax as needed for constipation. Ondansetron as needed for nausea and vomiting. DVT prophylaxis Placed on subcutaneous prophylactic anticoagulant (enoxaparin sodium 40 mg subcutaneous injection daily). High risk medications: IV morphine # CODE STATUS Full code Patient Status: Patient is admitted under inpatient status with expected length of stay greater than 2 midnights due to severity of presenting symptoms, risk of adverse event, and complexity of treatment plan. Pain Evaluation: Adequate Pain Control Resuscitation Status: CPR: Attempt Resuscitation Attending Statement The patient was seen and examined together with Dr. Paz on 09/11/2016 and I agree with the history, exam and plan as outlined in the note above. . Josette Paz DO Sep 11, 2016 11:36 Vince Durham MD Sep 12, 2016 08:23
--- NOTE | 2016-09-11 11:58 | ABG ---
DateTimeAnalyzed 11:51:00 -_ pH ____7.419 - 7.350 7.450 pCO2 ___25.9__ -mmHg 35.0 45.0 pO2 103 -mmHg 69.0 116 HCO3- ___16.4__ -mmol/L 22.0 26.0 ABE ___-6.3__ -mmol/L -2.0 2.0 tHb ___12.4__ -g/dL O2Hb ___95.6__ -% COHb ____1.5__ -% MetHb ____0.7__ -% sO2 ___97.7__ -% 25.0 FIO2 ___50.0__ -% Drawn By cf - Date/Time Notified____ 11:57:00 -_ Notified By cf - Notified Whom ___Dr. Quisumbing, Eliot - B 749 -mmHg tO2 ___16.7__ -Vol% Tyler test _Positive -
--- NOTE | 2016-09-11 13:05 | DRSVH ---
[facility] [address] [place] [address] Echocardiogram Report Name: EVENS PRIDE Date: 09/11/2016 Height: 67 in Hospital Exam Location: [facility] Weight: 113 lb Gender: Male BSA: 1.6 m2 : 1970 Age: 46 yrs Reason For Study: DYSPNEA Ordering Physician: HOSPITALIST SVHPerformed By: Willow Mason Referring Physician: Dr. Shirley Leahy Interpretation Summary The left ventricle is mildly dilated. Left ventricular systolic function is severely reduced. The ejection fraction is estimated to be 10-15%. There is severe global hypokinesis of the left ventricle. The E/E' ratio is severely increased, suggesting possible increased filling pressures. The right ventricle is mildly dilated. Right ventricular systolic function is severely reduced. The right ventricular systolic pressure is estimated at 43 mmHg assuming a right atrial pressure of 15 mm Hg. Both atria are severely dilated. There is moderate mitral regurgitation. There is moderate tricuspid regurgitation. There is no other significant valvular heart disease. The aortic root is mildly dilated. Procedure: A two-dimensional transthoracic echocardiogram with color flow and Doppler was performed. The study quality was technically good. There is no prior echocardiogram noted for this patient. The patient was in a tachycardic rhythm during the exam. The heart rate ranged between 119-125 bpm during the study. Left Ventricle: The left ventricle is mildly dilated. There is normal left ventricular wall thickness. Left ventricular systolic function is severely reduced. The ejection fraction is estimated to be 10-15%. There is severe global hypokinesis of the left ventricle. Septal motion is consistent with conduction abnormality. The E/E' ratio is severely increased, suggesting possible increased filling pressures. Right Ventricle: The right ventricle is mildly dilated. Right ventricular systolic function is severely reduced. Atria: Both atria are severely dilated. There is no Doppler evidence for an atrial septal defect. Mitral Valve: The mitral valve is normal. There is moderate mitral regurgitation. Aortic Valve: The aortic valve is trileaflet. The aortic valve opens well. No aortic regurgitation is present. Tricuspid Valve: The tricuspid valve leaflets are thin and pliable. There is moderate tricuspid regurgitation. The right ventricular systolic pressure is estimated at 43 mmHg assuming a right atrial pressure of 15 mm Hg. Pulmonic Valve: The pulmonic valve leaflets are thin and pliable; valve motion is normal. There is trace pulmonic regurgitation. There is no other significant valvular heart disease. Great Vessels: The aortic root is mildly dilated. The dimensions of the ascending aorta are normal. The pulmonary artery is normal size. The IVC is dilated (diameter is greater than 2.1 cm) and it collapses less than 50% with a sniff. This suggests a high right atrial pressure of 15 mm Hg. Pericardium/ Pleura There is no pericardial effusion. Bilateral pleural effusion. MMode/2D Measurements & Calculations LVIDd: 5.8 cm LA dimension: 4.2 cm RA long axis LVOT diam: 2.1 cm LVIDs: 5.3 cm AoV Opening FS: 7.8 % LA A2 area: 27.4 cm RA area EPSS: 2.1 cm LA A4 area: 27.4 cm Ao root diam IVSd: 0.83 cm LA length (vol) : 25.7 cm LVPWd: 1.1 cm RA vol asc Aorta Diam LA vol: 109.1 ml : 97.9 ml LA vol index RA Ao Arch Diam : 61.7 mm/ (distal): 2.4 cm RVDd major IVC diam: 2.4 cm : 7.5 cm LV anderson. diameter/BSA LV sys. diameter/BSA RVD2 (mid) (cm/m^2): 3.6 (cm/m^2): 3.4 : 3.6 cm Doppler Measurements & Calculations Ao V2 max: 65.4 cm/secMV E max carson Med Peak E' Carson TR max carson Ao max P.7 mmHg : 74.4 cm/sec : 263.2 cm/sec Ao mean P.1 mmHg MR ERO: 0.07 cm2 E/E' med: 24.0 TR max PG LVOT Max Carson Lat Peak E' Carson : 27.7 mmHg : 38.3 cm/sec PA V2 max SAMSON(I,D): 1.9 cm E/E' lat: 24.0 : 53.9 cm/sec sev ratio: 0.57 E/e' average: 24.0 PA mean PG : 0.73 mmHg PA Accel Time : 0.04 sec Ao V2 mean LV V1 max PG MR flow rate PA V2 mean : 50.2 cm/sec : 26.4 cm3/sec : 41.2 cm/sec Ao V2 VTI: 7.2 cm LV V1 VTI: 4.2 cm MR PISA radius SAMSON(V,D): 2.0 cm2 SAMSON indexed to BSA (cm^2/m^2): 1.2 Reading Physician:GAMALIEL
[2016-09-11] MEDS: Furosemide 10 mg/mL 4 mL Inj IVPUSH SCH ×2 (15:30→20:33)
--- NOTE | 2016-09-11 15:31 | NUR ---
Transfer to CCU Pt transferred to CCU. Report given to Lashell Ziegler RN.
--- NOTE | 2016-09-11 17:36 | PCM.CHPCAR ---
Consult Subjective Date of service Sep 11, 2016 Date of admit Sep 10, 2016 at 17:49 Provider Requesting Consult Requesting Provider: Vince Durham MD Primary Care Physician Primary Care Provider: Jeovanny Leahy MD Chief Complaint dyspnea from newly diagnosed systolic heart failure History of Present Illness 46 yo M h/o remote smoking admitted with newly diagnosed systolic heart failure. Patient is critically ill and unable to provide a complete competence of story. He does state that he has had progressive dyspnea over the past month. He used methamphetamine about 3 weeks for relief but it did not help. Denies chest pain. Review of Systems Review of Systems unable to obtain due to patient's critical condition. PMH Past Medical History None No Active Prescriptions or Reported Meds Current Inpatient Medications Current Medications Morphine Sulfate UP TO 10 mg IV in a 4 h... Q15MIN PRN IVPUSH Last administered on 09/10/16 18:35; Admin Dose 4 MG; Start 09/10/16 at 13:00; Stop at 20:18; Status DC Sodium Chloride 1,000 ml @ 200 mls/hr Q5H IV Last administered on 09/10/16 16: 58; Admin Dose 200 MLS/HR; Start 09/10/16 at 16:51; Stop 09/10/16 at 21:56; Status DC Al Hydrox/Mg Hydrox/Simethicone 30 ml Q6 PRN PO; Start 09/10/16 at 16:55; Stop 09/10/16 at 20:25; Status DC Ondansetron HCl Dose range: 4 mg to 8 mg Q4H PRN IVPUSH Last administered on 15:38; Admin Dose 4 MG; Start 09/10/16 at 16:55 Acetaminophen 975 mg Q6H PRN PO; Start 09/10/16 at 16:55; Stop 09/10/16 at 20:18 ; Status DC Enoxaparin Sodium 40 mg DAILY SUBQ Last administered on 09/11/16 08:19; Admin Dose 40 MG; Start 09/10/16 at 19:35 Albuterol 2.5 mg 2.5 mg Q2H PRN NEB Last administered on 09/11/16 08:14; Admin Dose 2.5 MG; Start 09/10/16 at 19:35 Levofloxacin/ Dextrose 750 mg/ Premix 150 ml @ 100 mls/hr Q24H IV Last administered on 09/10/16 22:02; Admin Dose 100 MLS/HR; Start 09/10/16 at 20:30 Piperacillin Sod/ Tazobactam Sod 3.375 gm/Dextrose/ Water 50 ml @ 12.5 mls/hr Q8H IV Last administered on 09/10/16 21:59; Admin Dose 12.5 MLS/HR; Start at 19:35; Stop 09/10/16 at 22:54; Status DC Sodium Chloride 1,000 ml @ 150 mls/hr Q6H40M IV Last administered on 09/11/16 05:54; Admin Dose 150 MLS/HR; Start 09/10/16 at 19:34 Al Hydrox/Mg Hydrox/Simethicone 30 ml Q6H PRN PO; Start 09/10/16 at 19:35 Senna 17.2 mg BID PRN PO; Start 09/10/16 at 19:35 Polyethylene Glycol 17 gm DAILY PRN PO; Start 09/10/16 at 19:35 Acetaminophen 650 mg Q4H PRN PO; Start 09/10/16 at 19:35 Morphine Sulfate 1-2 mg Q4H PRN IVPUSH Last administered on 09/11/16 17:05; Admin Dose 2 MG; Start 09/10/16 at 19:35 Piperacillin Sod/ Tazobactam Sod/ Dextrose/Water 50 ml @ 12.5 mls/hr Q8H IV Last administered on 09/11/16 17:06; Admin Dose 12.5 MLS/HR; Start 09/11/16 at 06 :00 Captopril 6.25 mg Q6 PO; Start 09/11/16 at 14:30; Stop 09/11/16 at 15:18; Status DC Furosemide 40 mg BID IVPUSH Last administered on 09/11/16 15:30; Admin Dose 40 MG; Start 09/11/16 at 14:10 Enalaprilat 1.25 mg Q6 IVPUSH; Start 09/11/16 at 20:30 Allergies: Coded Allergies: codeine (Verified Allergy, Mild, "stomach hurts", 09/10/16) Family History Family History unable to obtain due to patient condition Social History Hx Alcohol Use: NoHx Substance Use: No Smoking Status: Former Smoker (quit 10 years ago) Living Arrangement: with Family Exam Vital Signs Vital Sign - Last Date Time Temp Pulse Resp B/P Pulse Ox O2 Delivery O2 Flow Rate FiO2 09/11/16 12:32 123 25 136/107 99 30 09/11/16 08:14 OxyMask 6.00 09/11/16 07:58 36.4 Intake and Output 09/10/16 09/10/16 09/11/16 Cumulative From/Thru 15:00 23:00 07:00 09/10/16 12:34 - 09/11/16 05:56 Intake Total 2000 ml 895 ml 2895 ml Output Total 400 ml 400 ml Balance 2000 ml 495 ml 2495 ml Intake Oral 400 ml 400 ml IV Total 2000 ml 495 ml 2495 ml Output Urine Total 400 ml 400 ml Objective General appearance: No moderate respiratory distress, ill appearing, cooperative HEET: Normocephalic atraumatic, no scleral icterus, tongue midline, mucous membranes moist Neck: supple Cardiovascular: regular but tachycardic, normal S1 and normal S2, no murmurs/ rubs/gallops, PMI nondisplaced, + peripheral edema Respiratory: tachypneic, coarse b/l, able to speak in 2-3 word sentences Abdomen: Soft, nontender, nondistended, + bowel sounds Neuro: Alert, no facial droop, tongue midline, no gross motor deficits Psych: appropriate affect Skin: no rashes on face, neck, and lower extremities Lab and Diagnostics Result Diagram: 09/11/16 0518 09/11/16 0835 X-Rays, CTs and MRIs ECG 09/11/16 shows sinus tachycardia with LBBB Echo 09/11/2016: The left ventricle is mildly dilated. Left ventricular systolic function is severely reduced. The ejection fraction is estimated to be 10-15%. There is severe global hypokinesis of the left ventricle. The E/E' ratio is severely increased, suggesting possible increased filling pressures. The right ventricle is mildly dilated. Right ventricular systolic function is severely reduced. The right ventricular systolic pressure is estimated at 43 mmHg assuming a right atrial pressure of 15 mm Hg. Both atria are severely dilated. There is moderate mitral regurgitation. There is moderate tricuspid regurgitation. There is no other significant valvular heart disease. The aortic root is mildly dilated. CT chest 09/10/2016: 1. No pulmonary embolus. 2. Bilateral pleural effusions. 3. Masslike consolidation in the anterior right upper lobe finding may represent subsegmental atelectasis, infection/inflammation or neoplastic process. Recommend repeat CT scan of the chest in 3 months. 4. Mediastinal lymphadenopathy which could be reactive or neoplastic. 5. Bilateral lung emphysematous disease. Assessment & Plan Assessment 46 yo M h/o remote smoking admitted with newly diagnosed systolic heart failure: # Systolic heart failure (Heart failure with reduced ejection fraction): Patient has newly diagnosed systolic heart failure with EF 10-15%. Etiology is unclear but it could be from meth abuse, LBBB, HTN, or ischemic cardiomyopathy. He is NYHA class IV and hypervolemic on exam. He has responded nicely to IV furosemide. Plan: - Start enalapril IV for afterload reduction and switch to PO captopril once able to take PO. Uptitrate MILA-i for afterload reduction - Give furosemide 40mg IV tid, goal net negative 3L in 24 hours - Defer beta-blockers to when patient is euvolemic - Will start spironolactone 12.5mg daily depending on renal function - Ischemia evaluation once euvolemic # HTN: BP elevated. Unclear if this is chronic or due to volume overload. Will manage as above. # Meth abuse: patient educated about importance of staying away from illicit drugs # LBBB: as above # Former smoker: congratulated on successful smoking cessation Resuscitation Status: CPR: Attempt Resuscitation Time spent I spent 50 minutes of critical care time managing this patient's respiratory distress from severe systolic heart failure. Greg Lamar MD Sep 11, 2016 17:36
[2016-09-11] MEDS ORDERED: Furosemide 10 mg/mL 2 mL Inj IV SCH (18:00)
--- NOTE | 2016-09-11 19:07 | NUR ---
RESPIRATORY/BP Patient requiring intermittent BIPAP therapy, alternates from 8L OxyMask to BIPAP 30% FiO2. Has tolerated 8L OxyMask since 1700, but will continue to monitor for respiratory distress. IV Lasix administered to help w/ fluid overload, which he appears to be tolerating well. BPs have been elevated, Vasotec IV administered, which brings BPs to WNL. HR remains ST on monitor. Will continue to monitor vitals and respiratory status.
[2016-09-11] MEDS: Furosemide 10 mg/mL 2 mL Inj IVPUSH SCH ×2 (20:35→23:54)
[2016-09-11] MEDS: levoFLOXacin Inj 750 MG in IV Premix 1 EACH IV SCH (20:41)
[2016-09-12] VITALS (9 sets, daily range): BP systolic 98–122; BP diastolic 64–90; PULSE 92–111; RESP 12–18; O2SAT 91–99
[2016-09-12 00:07] LABS: Hepatitis A Antibody IgM Negative (Negative); Hepatitis B Core Antibody IgM Negative (Negative)
[2016-09-12 03:14] LABS: BASOPHILS % (AUTO) 0.1 % (0-3); EOSINOPHILS % (AUTO) 1.2 % (0-5); MONOCYTES % (AUTO) 5.6 % (4-12); Mean Corpuscular Hemoglobin 26.5 pg (27.0-35.0); Mean Corpuscular Volume 79.1 fL (81-100); NEUTROPHILS % (AUTO) 81.9 % (40-74); Platelet Count 409 bil/L (150-400)
[2016-09-12] MEDS: 0.9% Sodium Chloride 1,000 ML IV SCH (03:29)
[2016-09-12] MEDS: Piperacillin-Tazo 3.375 Gm Inj 3.375 GM in Dextrose 5% Minibag Plus 50 ML IV SCH (06:17)
[2016-09-12] MEDS: Furosemide 10 mg/mL 4 mL Inj IVPUSH SCH ×3 (06:33→12:44)
--- NOTE | 2016-09-12 07:02 | NUR ---
Cardiac / Respiratory Pt denies SOB. SPO2 high 90s. Respiratory effort appropriate. 3 L NC. HR down to low 100s high 90s. BP normotensive. Tele showed some accelerated ventricular rhythm. 12 leads EKGs obtained and were reviewed by Dr. Devi. No new orders. Pt diuresing well on Lasix. Total UOP = 7320 cc. Standing weight =57.8 kg admission weight=64.3 kg (bed scale). Received new verbal orders regarding Lasix and Captopril per Dr. Lamar. No overt complications noted. (Please refer to paper chart, CCU flowsheet, I&Os, EMAR, 12 leads EKGs, VS for further details)
--- NOTE | 2016-09-12 08:27 | PROG NOTE ---
[address] [address] PROGRESS NOTE PATIENT: EVENS PRIDE : 1970 MR#: [id number] ADMIT: 09/10/2016 JOB ID: [id number] DATE: 09/12/2016 REASON FOR FOLLOW UP: Congestive heart failure with possible underlying tuberculosis as well as confirmed respiratory viral infection. INTERVAL HISTORY: Overnight, the patient states his breathing is much, much improved. Recall that yesterday when I first saw the patient in consult for rule out tuberculosis, I was concerned that he might have CHF or a neoplasm such as lymphoma rather than an infection. A variety of order studies confirmed that he did, in fact, have severe CHF, including an EKG that showed a left bundle branch block, a grossly elevated BNP, and an echo which showed a dramatically reduced ejection fraction. Cardiology was consulted and an aggressive program aimed at the CHF was initiated. Overnight, the patient's anxiety, tachycardia and shortness of breath are much diminished. This morning, he tells me he has no fever, no chills, no night sweats. He still needs to sleep partially sitting up, but his overall just shortness of breath has dramatically improved. He has no chest pain. He continues to have a mild cough which is entirely nonproductive, and no pleuritic chest pain. He still has some mild left lower quadrant pain he complained of before, and his chronic low back pain. PHYSICAL EXAMINATION: Reveals a more comfortable gentleman sitting up wearing oxygen. He has been afebrile since admission, currently 36.5. His pulse has dropped from the 121-130 range of yesterday down to 92, his respiratory rate is 12-18, and much more comfortable than yesterday's labored breathing. His blood pressure is 120/84, and he is saturating well on 3 L. The patient is conversant and composed this morning. His eyes without conjunctivitis. His oral cavity is benign. Lungs with a few crackles at the bases bilaterally. Cardiac tones regular rate and rhythm, about 90, with no S3 and no S4. His abdomen is still notable for some minimal left lower quadrant tenderness which probably should be worked up after he gets out of his cardiac crisis here. No skin rashes noted. LABORATORIES: Include white count 15,300, platelet count 409,000. Creatinine 1.05. His LFTs continue to rapidly rise. Recall that his AST was 13 early yesterday, mery to 1200 around noon yesterday, and is now 1576. His ALT was 10 early yesterday morning, was 1200 by the afternoon, and is now 1902. Meanwhile, his alk phos and total bilirubin are normal. BNP 5521. LDH 2257. Albumin is 3.3. Procalcitonin negative x3, including a 0.06 level yesterday morning. Urinalysis negative. Serologic studies are largely pending, but we do have a negative acute hepatitis panel for hepatitis A, B and C. HIV was negative. Urine Legionella and pneumococcal negative. Strongyloides antibody, QuantiFERON Gold and cryptococcal antigen are pending. Micro studies include a coronavirus isolated from the multiplex PCR of the nares, and negative blood cultures, as well as a negative MRSA screen. The echocardiogram done yesterday shows an ejection fraction of 10-15%, with severe global hypokinesis of the entire left ventricle. IMPRESSION: This patient turns out to have very severe congestive heart failure associated with left bundle branch block and global hypokinesis. The cause of his cardiomyopathy is unknown at this point, though the patient had extreme hypertension yesterday in the hours following his admission, and that may be playing a role. The patient states he has only used meth once, and that was in an attempt to treat his congestive heart failure, but it is certainly possible this may be more drug use then we currently understand which may have contributed. It is also possible that the viral myocarditis plays a role here. We have proven that he has coronavirus infection, but this is certainly not the cause of his congestive heart failure which has been going on over a month by his report. As of this point, I see no evidence for tuberculosis. The CT scan that was discussed in yesterday's consult showed a fairly isolated small lesion in his right lung which may or may not have been the longstanding, and would not be very typical at all of tuberculosis. His pleural effusions are almost certainly on the basis of congestive heart failure rather than any intrinsic pulmonary or neoplastic disease. RECOMMENDATIONS: 1. Will discontinue the levofloxacin and Zosyn he is receiving, as I see no evidence whatsoever for a bacterial pneumonia process. 2. We await the many serologies that were ordered including the QuantiFERON Gold and Strongyloides. 3. Yesterday, I went ahead and dropped TB isolation on this patient once it became clear that was not likely prospect. He should remain in isolation for coronavirus, and this will be droplet isolation. 4. I do not think there is any indication at this point to proceed with the tapping of his pleural effusions, as these will almost certainly be due to his congestive heart failure. If the pleural effusions should fail to resolve, however, it would still be reasonable to go ahead and sample at least the larger of the pleural effusions. 5. I had canceled the CT scan of the abdomen yesterday that I had initially ordered to evaluate his left lower quadrant pain, but I think as the patient recovers from his cardiac issues, it may be reasonable to go back and do the CT scan with contrast of the abdomen. The reason I had canceled it was to avoid giving a dye load in a patient who is in the throes of congestive heart failure. 6. ID will continue to follow this case with you as we exclude esoteric infections, but the main issue here is obviously his heart.
--- NOTE | 2016-09-12 11:08 | PCM.PNCARD ---
Subjective Date of service Sep 12, 2016 Chief Complaint dyspnea from newly diagnosed systolic heart failure History of Present Illness 46 yo M h/o remote smoking admitted with newly diagnosed systolic heart failure. Patient is critically ill and unable to provide a complete competence of story. He does state that he has had progressive dyspnea over the past month. He used methamphetamine about 3 weeks for relief but it did not help. Denies chest pain. Subjective: Patient had excellent diuresis in the past 24 hours with IV furosemide and feels much better from breathing standpoint. He still can't lay flat and breathe comfortably. Patient has no other complaints. PROBLEM LIST: # HFrEF with EF 10-15% on Echo 09/11/16 at diagnosis # LBBB # HTN # Transaminitis # Meth use # Marijuana use # Former smoker Exam Vital Signs Vital Sign - Last Date Time Temp Pulse Resp B/P Pulse Ox O2 Delivery O2 Flow Rate FiO2 09/12/16 07:21 Supplement Oxygen 09/12/16 07:21 36.5 92 12 120/84 98 3.00 09/11/16 16:30 30 Intake and Output 09/11/16 09/11/16 09/12/16 Cumulative From/Thru 14:59 22:59 06:59 09/10/16 12:34 - 09/12/16 06:48 Intake Total 2988 ml 1000 ml 6883 ml Output Total 2015 ml 7320 ml 9735 ml Balance 973 ml -6320 ml -2852 ml Intake Oral 1920 ml 800 ml 3120 ml IV Total 1068 ml 200 ml 3763 ml Output Urine Total 2015 ml 7320 ml 9735 ml # Bowel Movements 0 0 General appearance: No apparant distress, ill appearing, cooperative HEET: Normocephalic atraumatic, no scleral icterus, tongue midline, mucous membranes moist Neck: supple Cardiovascular: regular, normal S1 and normal S2, PMI laterally displaced, no murmurs/ rubs/gallops, JVP 11cm H20, no peripheral edema Respiratory: fair aeration, decreased breath sounds at the bases bilaterally Abdomen: Soft, nontender, nondistended, + bowel sounds Neuro: Alert, no facial droop, tongue midline, no gross motor deficits Lab and Diagnostics Labs Hep A, B, C negative ECG 09/11/16 shows sinus tachycardia with LBBB Result Diagram: 09/12/16 0255 09/12/16 0255 X-Rays, CTs and MRIs Echo 09/11/2016: The left ventricle is mildly dilated. Left ventricular systolic function is severely reduced. The ejection fraction is estimated to be 10-15%. There is severe global hypokinesis of the left ventricle. The E/E' ratio is severely increased, suggesting possible increased filling pressures. The right ventricle is mildly dilated. Right ventricular systolic function is severely reduced. The right ventricular systolic pressure is estimated at 43 mmHg assuming a right atrial pressure of 15 mm Hg. Both atria are severely dilated. There is moderate mitral regurgitation. There is moderate tricuspid regurgitation. There is no other significant valvular heart disease. The aortic root is mildly dilated. CT chest 09/10/2016: 1. No pulmonary embolus. 2. Bilateral pleural effusions. 3. Masslike consolidation in the anterior right upper lobe finding may represent subsegmental atelectasis, infection/inflammation or neoplastic process. Recommend repeat CT scan of the chest in 3 months. 4. Mediastinal lymphadenopathy which could be reactive or neoplastic. 5. Bilateral lung emphysematous disease. Abd US 09/10/2016: Limited study due to patient hyperventilation, and inability to suspend respiration. Mild hepatomegaly without splenomegaly. Significant portions of the peritoneal space and the retroperitoneum are poorly seen due to bowel gas and hyperventilation. The gallbladder wall is abnormally thickened at 7-8.7 mm in thickness, but no gallstones or biliary distention is associated. As noted, however, quality of visualization for non-calcified gallstones was quite limited. Assessment & Plan Assessment 46 yo M h/o remote smoking admitted with newly diagnosed systolic heart failure: # Systolic heart failure (Heart failure with reduced ejection fraction): Patient has newly diagnosed systolic heart failure with EF 10-15%. It is biventricular HF. Etiology is unclear but it could be from meth abuse, LBBB, HTN , ischemic cardiomyopathy, or idiopathic. He remains NYHA class IV and hypervolemic on exam he has responded nicely to IV furosemide. Plan: - Continue captopril 12.5mg q6hrs - Continue furosemide 40mg IV, goal net negative 2-3L in 24 hours - Defer beta-blockers to when patient is euvolemic - Start spironolactone 12.5mg daily - Ischemia evaluation once euvolemic and able to lay flat # HTN: BP better controlled now. Unclear if this is chronic or due to volume overload. Will manage as above. # LBBB: as above # Transaminitis: unclear etiology. Could be HF related. Hep A, B, and C serologies negative. Abd US was unremarkable (but was poor quality). No symptoms. - Continue to serially trends LFTs # Meth abuse: patient educated about importance of staying away from illicit drugs. He states that he only used it once about 3 weeks prior to admission. Will do random urine tox screens as outpatient. # Former smoker: congratulated on successful smoking cessation Dispo: patient is okay to move out of the ICU later today. Problems: Pain Evaluation: Adequate Pain Control Resuscitation Status: CPR: Attempt Resuscitation Time spent I spent 35 minutes of critical care time managing this patient's severe systolic heart failure. Greg Lamar MD Sep 12, 2016 11:08
--- NOTE | 2016-09-12 14:57 | NUR ---
DOWNGRADE TO PCC Patient stable throughout NOC shift, and into day shift. Vitals WNL, BP significantly decreased from previous days. Order received for patient to downgrade to PCC w/ tele. Report given to ROB Dunham who will assume care of patient at 1500. Will continue 2000 mL fluid restriction, although patient is having a difficult time following this guideline. Lasix dose changed to 40 mg IV TID, during day shift, so patient can sleep through the night. Will continue to monitor vitals and urine output.
[2016-09-12] MEDS ORDERED: Furosemide 10 mg/mL 4 mL Inj IVPUSH SCH (16:00)
--- NOTE | 2016-09-12 17:00 | NUR ---
Oxygen Pt is on continuos pulse ox, pt was taken off of oxygen secondary to 99-100% saturations. Pt has no c/o of SOB on RA at this time. Will continue to monitor.
--- NOTE | 2016-09-12 17:46 | PCM.PNMED ---
Subjective Date of Service Sep 12, 2016 Subjective Overnight: He required intermittent BiPAP overnight but his respiratory status began to improve with IV Lasix. He eventually switched to oxymask and has been tolerating it well so far. Today: He now reports much improved shortness of breath, and states he feels much more comfortable. He does reports some mild orthopnea, but is almost able to lay flat today. He also reports a cough but denies wheezing, fevers, chills, N/V/D. Exam Vital Signs Vital Sign - Last Date Time Temp Pulse Resp B/P Pulse Ox O2 Delivery O2 Flow Rate FiO2 09/12/16 12:42 36.7 93 12 102/75 98 Nasal Cannula 3.00 09/11/16 16:30 30 Intake and Output 09/11/16 09/11/16 09/12/16 Cumulative From/Thru 15:00 23:00 07:00 09/10/16 12:34 - 09/12/16 06:48 Intake Total 2988 ml 1000 ml 6883 ml Output Total 2015 ml 7320 ml 9735 ml Balance 973 ml -6320 ml -2852 ml Intake Oral 1920 ml 800 ml 3120 ml IV Total 1068 ml 200 ml 3763 ml Output Urine Total 2015 ml 7320 ml 9735 ml # Bowel Movements 0 0 Exam General: Well-developed, thin, appropriately interactive. No acute distress. HEENT: Normocephalic, atraumatic. External ears without defect. Pupils equal, round, and reactive to light and accommodation. Neck: Supple with full range of motion. No JVD. Cardiovascular: Regular rate and rhythm with no murmurs, rubs, or gallops appreciated Pulmonary: Mild crackles at bases. Abdomen: Bowel tones present. Soft, nontender, nondistended. No hepatosplenomegaly or masses appreciated. Extremities: No clubbing, cyanosis, edema, or lymphadenopathy appreciated. Skin: Erythematous papular generalized rash on anterior thorax. Neurological: Cranial nerves grossly intact. Normal muscle strength, tone, and bulk. Psychiatric: Normal mood and affect. Alert and oriented to person, place, and time. Lab and Diagnostics Result Diagram: 09/12/16 0255 09/12/16 025 X-Rays, CTs and MRIs PROCEDURE: X-RAY CHEST ONE VIEW, PORTABLE IMPRESSION: Rounded opacity projected over the right upper lobe which may be related to summation shadow involving several overlying bony structures but pulmonary nodule cannot entirely be excluded. When clinically feasible recommend nonemergent two-view chest radiograph for further assessment. Approved by: Kiera Uribe MD, PhD on 09/10/2016 at 17:01 PROCEDURE: CT ANGIO CHEST PULMONARY EMBOLISM IMPRESSION: 1. No pulmonary embolus. 2. Bilateral pleural effusions. 3. Masslike consolidation in the anterior right upper lobe finding may represent subsegmental atelectasis, infection/inflammation or neoplastic process. Recommend repeat CT scan of the chest in 3 months. 4. Mediastinal lymphadenopathy which could be reactive or neoplastic. 5. Bilateral lung emphysematous disease. Approved by: Kiera Uribe MD, PhD on 09/10/2016 at 15:22 PROCEDURE: US ABDOMEN IMPRESSION: Limited study due to patient hyperventilation, and inability to suspend respiration. Mild hepatomegaly without splenomegaly. Significant portions of the peritoneal space and the retroperitoneum are poorly seen due to bowel gas and hyperventilation. The gallbladder wall is abnormally thickened at 7-8.7 mm in thickness, but no gallstones or biliary distention is associated. As noted, however, quality of visualization for non-calcified gallstones was quite limited. Approved by: Erickson Sabillon M.D. on 09/10/2016 at 21:56 Echocardiogram Report Interpretation Summary The left ventricle is mildly dilated. Left ventricular systolic function is severely reduced. The ejection fraction is estimated to be 10-15%. There is severe global hypokinesis of the left ventricle. The E/E' ratio is severely increased, suggesting possible increased filling pressures. The right ventricle is mildly dilated. Right ventricular systolic function is severely reduced. The right ventricular systolic pressure is estimated at 43 mmHg assuming a right atrial pressure of 15 mm Hg. Both atria are severely dilated. There is moderate mitral regurgitation. There is moderate tricuspid regurgitation. There is no other significant valvular heart disease. The aortic root is mildly dilated. Reading Physician:PM Venous blood gas DateTimeAnalyzed 11:51:00 -_ pH ____7.419 - 7.350 7.450 pCO2 ___25.9__ -mmHg 35.0 45.0 pO2 103 -mmHg 69.0 116 HCO3- ___16.4__ -mmol/L 22.0 26.0 12-lead ECG Sinus tachycardia, left bundle branch block Assessment & Plan Mr. Alvarez is a 46-year-old male with history of tobacco use who presents with one -month history of progressive shortness of breath and weight loss over the past 1 month. Today is hospital day 2. 1. Acute hypoxic respiratory failure, present on admission. Improving. -Secondary to acute CHF. Patient de-saturated to 88% O2 on room air on admission. with oxygen mask on. This has improved with diuresis. Legionella PCR negative. Patient is positive for coronavirus -Discontinued Piperacillin/Tazobactam and IV Levofloxacin -Continue monitor blood gases as needed and to monitor patient's vital signs -Thoracentesis performed 09/11/16. -Infectious Disease consulted and following patient. His time and recommendations are appreciated. 2. Acute systolic congestive heart failure, present on admission, active -Patient has no known history of cardiac disease prior to today. Likely progressive CHF exacerbated by Coronavirus infection. BNP elevated at 5521. Echocardiogram showed EF 10-15%, left ventricular and right ventricular systolic function is severely reduced, both atria are severely dilated, severe global hypokinesis of left ventricle, and moderate mitral and tricuspid regurgitation. Differential diagnosis of heart failure includes but not limited to viral cardiomyopathy, chronic valvular disease, amphetamine-induced. Will proceed to cath for evaluation for ischemia once the patient is able to lie flat. -IV furosemide 40 mg IV TID -Captopril 12.5 mg PO q6h -Spironolactone 12.5 mg daily -Cardiology consulted and following patient. Their time and recommendations are appreciated. 3. Acute elevated liver function tests, resent on admission, active -AST increased from 89 to 1576. ALT increased from 211 to 1902. Alk phos and bilirubin normal. Abdominal ultrasound shows that the gallbladder wall is abnormally thickened but no gallstones or biliary distention. Visualization for non-calcified gallstones was quite limited. Pt does not exhibit signs of cholecystitis, so this is unlikely. Acetaminophen level was normal. Hepatitis panel was normal. This is likely secondary to hepatic congestion due to severe heart failure. -Continue to watch LFTs for now. Consider GI consult if they do not begin to improve with treatment of his heart failure. 4. Right upper lob lung mass, chronicity unknown, present on admission, active -Etiology of lung mass is unknown. Differential diagnosis of lung mass includes but not limited to infectious granuloma such as mycobacterial or fungal, abscess -forming bacteria, hamartoma, sarcoidosis, rounded atelectasis, or a neoplastic process. Patient also reports weight loss but denies hemoptysis -AFB stains times three, lipid, and QuantiFERON gold cultures performed -Based on results of tests if an infectious cause is unlikely, then patient may need a repeat CT scan in 3 months 5. Acute chest pain, present on admission, resolved -Likely secondary to respiratory distress -Patient experienced 10/10 chest pain with improvement after morphine -Sinus tachycardia with left bundle branch block on EKG -Troponin times two were negative 6. Essential Hypertension, present on admission, active -Patient's diastolic blood pressure has been in the 100's -Initial blood pressure of 131/106 -Patient started on furosemide, captopril, and spironolactone 7. Tobacco use -Patient reports tobacco cessation Acetaminophen for mild pain when necessary. Bowel regimen Senna and Miralax as needed for constipation. Ondansetron as needed for nausea and vomiting. DVT prophylaxis Placed on subcutaneous prophylactic anticoagulant (enoxaparin sodium 40 mg subcutaneous injection daily). High risk medications: IV morphine # CODE STATUS Full code Patient Status: Patient is admitted under inpatient status with expected length of stay greater than 2 midnights due to severity of presenting symptoms, risk of adverse event, and complexity of treatment plan. Resuscitation Status: CPR: Attempt Resuscitation Attending Statement The patient was seen and examined together with Dr. Simpson on 09/12/2016 and I agree with the history, exam and plan as outlined in the note above. . Eliot Simpson Sep 12, 2016 14:12 Vince Durham MD Sep 14, 2016 16:38
[2016-09-12 21:38] LABS: BASOPHILS % (AUTO) 0.1 % (0-3); EOSINOPHILS % (AUTO) 2.1 % (0-5); MONOCYTES % (AUTO) 6.1 % (4-12); Mean Corpuscular Hemoglobin 26.7 pg (27.0-35.0); Mean Corpuscular Volume 78.8 fL (81-100); NEUTROPHILS % (AUTO) 82.3 % (40-74); Platelet Count 359 bil/L (150-400)
[2016-09-12 22:18] LABS: Magnesium 1.4 mg/dL (1.6-2.6); TROPONIN T 0.01 ug/L (0.0-0.011)
--- NOTE | 2016-09-12 22:27 | NUR ---
Chest Pain. Called to the patients room by SHAKIRA. Patient reported having left sided chest pain. Patient localizes pain to his ribs and intercostal muscle. Patient reports increased pain with palpation and deep inspiration. Position changes also increase patients chest pain. Vitals obtained, STAT 12 lead obtained with no notable changes and provider Angélica contact about changes in patients condition. Provider Angélica came to see the patient shortly after being paged. STAT labs ordered and IV morphine given for pain. Patient reports feeling better shortly after administration of pain medications. Addendum: 09/13/16 at 0609 by DON CATALAN RN Patient reported resolution of chest pain at approximately 2300 on 09/13/16.
[2016-09-12] MEDS ORDERED: Magnesium Sulf 4 Gm/100 mL H2O 4 GM in IV Premix 1 EACH IV ONE (22:45)
[2016-09-12] MEDS ORDERED: 0.9% Sodium Chloride 250 ML ONE (22:59)
[2016-09-13] VITALS (22 sets, daily range): BP systolic 91–140; BP diastolic 61–89; PULSE 58–104; RESP 9–25; O2SAT 92–98
[2016-09-13 02:32] LABS: BASOPHILS % (AUTO) 0.1 % (0-3); EOSINOPHILS % (AUTO) 2.8 % (0-5); MONOCYTES % (AUTO) 5.9 % (4-12); Mean Corpuscular Hemoglobin 26.3 pg (27.0-35.0); Mean Corpuscular Volume 78.3 fL (81-100); Platelet Count 327 bil/L (150-400)
--- NOTE | 2016-09-13 09:45 | NUR ---
Telemetry Change When checking his telemetry at 0755 noted that he was sinus rhythm 87 with an inverted T wave. Upon investigation it appears that the T wave inverted about 0130. Dr. Durham and his resident team were notified. No new orders at that time. He will be going for a heart catheterization at 1000. MDs also aware. Care continues. Addendum: 09/13/16 at 1725 by ABENA GALEAS RN It was noted at 1510 that he had converted to a bundle branch block at a rate of 94. Looking at previous EKGs from the last couple of days it appears he has had this bundle branch block. Notified Dr. Lamar. He stated this was in line with his cardiac conditions. No new orders.
[2016-09-13] MEDS ORDERED: 0.9% Sodium Chloride 1,000 ML ONE ×2 (09:48→10:03)
[2016-09-13] MEDS ORDERED: Heparin 1,000 Units/500 mL NS Premix IV ONE (09:48)
[2016-09-13] MEDS ORDERED: Nitroglycerin 50,000 mcg/250 mL D5W Premix IV ONE (09:49)
[2016-09-13] MEDS ORDERED: Heparin 1,000 Unit/mL 10 mL Inj ONE ×2 (09:49→10:00)
--- NOTE | 2016-09-13 10:10 | NUR ---
Geriatric Nurse Assistant He left [facility] 2004 about 1010 to go the the cytogenetics laboratory manager for a cardiac catheterization. Consent signed. Two working IV's. Catering And Events Manager notified. Report given to Calvin from the cytogenetics laboratory manager and Carly RIVAS in [facility]. Addendum: 09/13/16 at 1458 by ABENA GALEAS RN He returned to the [facility] 2004 at 1455. Report received from Melissa RIVAS in [facility]. Right radial access clean, dry, and intact. Update given to sister over the phone per patient's permission. Care continues.
[2016-09-13] MEDS ORDERED: fentaNYL-PF 50 mCg/mL 2 mL Inj ONE (10:24)
--- NOTE | 2016-09-13 11:44 | PCM.CVCATH ---
Cardiac Cath Report Date of Service Sep 13, 2016 Primary Indication Systolic heart failure Procedure coronary angiography, left heart cath, and right heart cath Vascular Access Right radial artery using 5 Fr slender sheath, closure with TR band. Right internal jugular vein using 6Fr sheath, manual closure. Diagnostic Catheters Left main: [place] 4.0, 5 Fr RCA: [place] 4.0, 5 Fr Procedure Details Coronary angiography details: The patient was brought to the cardiac catheterization lab in the fasting state. Patient was laid supine on the cardiac catheterization table and the right neck and the right forearm were prepped and draped in the usual sterile fashion. One percent Xylocaine was infiltrated over the right internal jugular vein and over the right radial artery. Vascular access of the right internal jugular vein was then achieved under ultrasound guidance. [place] was done using 6Fr catheter and pressures and oxygenation were obtained. [place] was then removed. Next right radial artery access was achieved using ultrasound guidance. Guide wire was used to advance the catheter through the sheath and up into aortic sinuses. After coronary angiography was completed, guide wire was advanced through the catheter ahead of the tip of the catheter and the guide wire along with the catheter were pulled together out of the sheath. Medications/Fluoro Time Medications administered: 1.Fentanyl: 50 mcg IV 2. Midazolam: 1 mg IV 3. Heparin: 5000 units IV 4. Nitroglycerin: 200 mcg IA Fluoroscopy Time: 2.8 minutes, 208 mGy Contrast (Isovue): 50 mls Blood loss: 10 mls Findings 1) Coronary angiography: Right dominance a. Left main is angiographically normal b. LAD is angiographically normal c. LCx is angiographically normal d. RCA is angiographically normal 2) Left Heart catheterization: a. LVEDP is normal at 15 mmHg. b. No significant transaortic gradient on catheter pull-back. 3) Right heart cath: * RA Mean Pressure 5 mmHg * RV Pressure 32/0 (RVEDP 4mmHg) * PA Pressure 31/14 (mean 21 mmHg) * PCWP 11 mmHg * Ann Marie Cardiac Output 3.86 L/min / Ann Marie Cardiac Index 2.3 L/min/m2 Complications There were no periprocedural complications identified. Summary 1) No angiographic coronary artery disease 2) Normal right and left sided filling pressures with normal PA pressures and normal cardiac output/index Recommendations 1) Maximize medical management of systolic heart failure 2) Continue with primary prevention of coronary artery disease copies to: Jeovanny Leahy MD, Bhrigu R MD Sep 13, 2016 11:44
[2016-09-13] MEDS ORDERED: MeTOProlol XL 25 mg ER24 Tablet PO SCH (11:45)
[2016-09-13] MEDS ORDERED: 0.9% Sodium Chloride 250 ML IV PRN (12:00)
[2016-09-13] MEDS ORDERED: Atropine 1 mg/10 mL (Code) Syringe IVPUSH PRN (12:00)
[2016-09-13] MEDS ORDERED: 0.9% Sodium Chloride 1,000 ML IV PRN (12:00)
[2016-09-13] MEDS ORDERED: Ondansetron 2 mg/mL 2 mL Inj IVPUSH PRN (12:00)
--- NOTE | 2016-09-13 15:23 | NUR ---
Social Work: Initial Assessment: Data & Assessment: EMR reviewed. See Initial Asessment. Patient is a 46 y/o male that admitted due to Dyspnea and Leukocytosis. .Patient confirmed that his primary care physician is Dr. Jeovanny Leahy. Patient's insurance is [employer]. Patient JESSICA is his sister Moe Baptiste- [phone]. Patient states that he does not have a DPOA and declined material. Patient does not have VA or LTC benefits. Patient is independent at baseline. Patient lives in a single level home with five steps to enter. Patient does not have any DME, any HH history and no SNF history. Patient is likely to discharge home with HH. patient was provided with HH choice list and patient does not have a preference. SW referred to rotating calendar and referred patient to [facility]. [facility] access and [facility] faxed. SW will continue to follow. Plan: [facility] home with [facility] via POV. SW will follow. Lorin Rodriguez LMSW, DONN Addendum: 09/14/16 at 1532 by LORIN RODRIGUEZ SS Amended: Links added.
--- NOTE | 2016-09-13 15:51 | NUR ---
NUTRITION ASSESSMENT ASSESS: Pt is 46 yo male admitted w/ dyspnea, leukocytosis and mediastinal adenopathy. Pt states experiencing increasing SOB and wt loss d/t lack of appetite. Pt does not know if he actually lost weight, but noticed that his waist was thinner and clothes fit differently. Pt stated weighing 139 lbs at the doctors office recently, but felt the higher weight was related to fluid accumulation in his chest. Pt reports his usual build is slender, and typically weighs between 125-130 lbs. Pt states his appetite is improving at the hospital, and that he is hungry. Would like Chocolate or Vanilla Ensure as well as Magic Cup on all trays. Pt on intermittent Bipap. Went to [facility] ii laborer today for cardiac catheterization. PMHX: Chronic low back pain, Hx of tobacco use LABS: Cl 93, BUN 29, Gluc 111, Ca 8.2, Mg 1.4, AST 496, ALT 1247, Alb 3.0, Procalcitonin 1.23 MEDS: Reviewed. Spirinolactone. GI: 0 BM noted DIET: Heart Healthy No PO noted in chart NUTRITION FOCUSED PHYSICAL ASSESSMENT: Appearance: Pt lying in bed. Noticed prominent clavicle bones and slight rounding of shoulders. Jose R: 19 CURRENT WT: 58.8 kg (85% of IBW) BMI: 20.3 kg/m2 IBW: 67.3 kg UBW: 56.8-59.1 kg EST. NEEDS: Weight gain Kcals: 6549-6910 kcal/day (30-35 kcal/kg BW) Pro: 80-100 g/day (1.2-1.5 g/kg IBW) NUTRITION DIAGNOSIS: 1) Inadequate oral intake related to acute illness as evidenced by loss of LBM, lack of appetite x 1 month and decreased PO intake x 1 month. NUTRITION INTERVENTION: 1) Add chocolate or vanilla ensure to all trays to increase protein and calorie intake. 2) Add Magic Cup to all trays to increase protein and calorie intake. MONITOR / EVAL: PO intake, wt, labs, GI, nutrition status, POC. Will continue to monitor per moderate nutritional risk guidelines. Addendum: 09/13/16 at [address] Student documentation reviewed and I agree with the above assessment with the correction that the pt will be sent Ensure BID and Magic Cups BID to limit fluids d/t fluid restriction. uLkas Alvarado, MS, RDN, CD
--- NOTE | 2016-09-13 20:32 | PCM.PNMED ---
Subjective Date of Service Sep 13, 2016 Subjective Mr. Alvarez is a 46-year-old male with history of tobacco use who presents with one -month history of progressive shortness of breath and weight loss over the past 1 month. Today is hospital day 4. Overnight: He had an episode of chest pain where his chest was tender to palpation and worsened with deep breaths or position changes. It was relieved with morphine and no changes to his EKG. Today: He continues to have improved shortness of breath. He is able to lay flat for longer periods of time today. He reports chest pain last night but it has resolved. He has low back pain that is chronic. He is anxious for the procedure today. He is currently breathing well on room air. Exam Vital Signs Vital Sign - Last Date Time Temp Pulse Resp B/P Pulse Ox O2 Delivery O2 Flow Rate FiO2 09/13/16 02:22 36.6 79 12 100/77 92 Nasal Cannula 5.00 09/11/16 16:30 30 Intake and Output 09/12/16 09/12/16 09/13/16 Cumulative From/Thru 15:00 23:00 07:00 09/10/16 12:34 - 09/13/16 06:05 Intake Total 1500 ml 0 ml 8383 ml Output Total 3650 ml 800 ml 36672 ml Balance -2150 ml -800 ml -5802 ml Intake Oral 1500 ml 0 ml 4620 ml IV Total 3763 ml Output Urine Total 3650 ml 800 ml 75027 ml # Bowel Movements 0 0 Exam General: Well-developed, thin, appropriately interactive. No acute distress. HEENT: Normocephalic, atraumatic. External ears without defect. Pupils equal, round, and reactive to light and accommodation. Neck: Supple with full range of motion. No JVD. Cardiovascular: Regular rate and rhythm with no murmurs, rubs, or gallops appreciated Pulmonary: Mild crackles at bases. No respiratory distress or use of accessory muscles. Abdomen: Bowel tones present. Soft, nontender, nondistended. No hepatosplenomegaly or masses appreciated. Extremities: No clubbing, cyanosis, edema, or lymphadenopathy appreciated. Skin: Erythematous papular generalized rash on anterior thorax. Neurological: Cranial nerves grossly intact. Normal muscle strength, tone, and bulk. Psychiatric: Normal mood and affect. Alert and oriented to person, place, and time. IVs and Medications Medications Reviewed: Medications were reviewed in detail Lab and Diagnostics Result Diagram: 09/13/1621909/13/16219 X-Rays, CTs and MRIs PROCEDURE: X-RAY CHEST ONE VIEW, PORTABLE IMPRESSION: Rounded opacity projected over the right upper lobe which may be related to summation shadow involving several overlying bony structures but pulmonary nodule cannot entirely be excluded. When clinically feasible recommend nonemergent two-view chest radiograph for further assessment. Approved by: Kiera Uribe MD, PhD on 09/10/2016 at 17:01 PROCEDURE: CT ANGIO CHEST PULMONARY EMBOLISM IMPRESSION: 1. No pulmonary embolus. 2. Bilateral pleural effusions. 3. Masslike consolidation in the anterior right upper lobe finding may represent subsegmental atelectasis, infection/inflammation or neoplastic process. Recommend repeat CT scan of the chest in 3 months. 4. Mediastinal lymphadenopathy which could be reactive or neoplastic. 5. Bilateral lung emphysematous disease. Approved by: Kiera Uribe MD, PhD on 09/10/2016 at 15:22 PROCEDURE: US ABDOMEN IMPRESSION: Limited study due to patient hyperventilation, and inability to suspend respiration. Mild hepatomegaly without splenomegaly. Significant portions of the peritoneal space and the retroperitoneum are poorly seen due to bowel gas and hyperventilation. The gallbladder wall is abnormally thickened at 7-8.7 mm in thickness, but no gallstones or biliary distention is associated. As noted, however, quality of visualization for non-calcified gallstones was quite limited. Approved by: Erickson Sabillon M.D. on 09/10/2016 at 21:56 Echocardiogram Report Interpretation Summary The left ventricle is mildly dilated. Left ventricular systolic function is severely reduced. The ejection fraction is estimated to be 10-15%. There is severe global hypokinesis of the left ventricle. The E/E' ratio is severely increased, suggesting possible increased filling pressures. The right ventricle is mildly dilated. Right ventricular systolic function is severely reduced. The right ventricular systolic pressure is estimated at 43 mmHg assuming a right atrial pressure of 15 mm Hg. Both atria are severely dilated. There is moderate mitral regurgitation. There is moderate tricuspid regurgitation. There is no other significant valvular heart disease. The aortic root is mildly dilated. Reading Physician:PM Venous blood gas DateTimeAnalyzed 11:51:00 -_ pH ____7.419 - 7.350 7.450 pCO2 ___25.9__ -mmHg 35.0 45.0 pO2 103 -mmHg 69.0 116 HCO3- ___16.4__ -mmol/L 22.0 26.0 12-lead ECG Sinus tachycardia, left bundle branch block Additional Diagnostics Cardiac Cath Report Summary 1) No angiographic coronary artery disease 2) Normal right and left sided filling pressures with normal PA pressures and normal cardiac output/index Recommendations 1) Maximize medical management of systolic heart failure 2) Continue with primary prevention of coronary artery disease copies to: Jeovanny Leahy MD <Electronically signed by Greg Lamar MD> 09/13/16 1144 Assessment & Plan Mr. Alvarez is a 46-year-old male with history of tobacco use who presents with one -month history of progressive shortness of breath and weight loss over the past 1 month. Today is hospital day 2. 1. Acute hypoxic respiratory failure, present on admission. Improving. -Secondary to acute CHF. Patient de-saturated to 88% O2 on room air on admission. with oxygen mask on. This has improved with diuresis. Legionella PCR negative. Patient is positive for coronavirus -Discontinued Piperacillin/Tazobactam and IV Levofloxacin -Continue monitor blood gases as needed and to monitor patient's vital signs -Thoracentesis performed 09/11/16. -Infectious Disease consulted and following patient. His time and recommendations are appreciated. 2. Acute systolic congestive heart failure, present on admission, active -Patient has no known history of cardiac disease prior to today. Likely progressive CHF exacerbated by Coronavirus infection. BNP elevated at 5521. Echocardiogram showed EF 10-15%, left ventricular and right ventricular systolic function is severely reduced, both atria are severely dilated, severe global hypokinesis of left ventricle, and moderate mitral and tricuspid regurgitation. Differential diagnosis of heart failure includes but not limited to viral cardiomyopathy, chronic valvular disease, amphetamine-induced. Will proceed to cath for evaluation for ischemia once the patient is able to lie flat. -Cardiology consulted and following patient. Their time and recommendations are appreciated. -Coronary angiogram and cardiac catheterization performed today and was not concerning for CAD or elevated pressures -Continue medications per cardiology 3. Acute elevated liver function tests, resent on admission, active -AST increased from 89 to 1576. ALT increased from 211 to 1902, both are now downtrending with AST 496, ALT 1247. Alk phos and bilirubin normal. Abdominal ultrasound shows that the gallbladder wall is abnormally thickened but no gallstones or biliary distention. Visualization for non-calcified gallstones was quite limited. Pt does not exhibit signs of cholecystitis, so this is unlikely. Acetaminophen level was normal. Hepatitis panel was normal. This is likely secondary to hepatic congestion due to severe heart failure. -Continue to watch LFTs for now. 4. Right upper lob lung mass, chronicity unknown, present on admission, active -Etiology of lung mass is unknown. Differential diagnosis of lung mass includes but not limited to infectious granuloma such as mycobacterial or fungal, abscess -forming bacteria, hamartoma, sarcoidosis, rounded atelectasis, or a neoplastic process. Patient also reports weight loss but denies hemoptysis -AFB stains times three, lipid, and QuantiFERON gold cultures performed -Based on results of tests if an infectious cause is unlikely, then patient may need a repeat CT scan in 3 months 5. Acute chest pain, present on admission, resolved -Likely secondary to respiratory distress -Patient experienced 10/10 chest pain with improvement after morphine -Sinus tachycardia with left bundle branch block on EKG -Troponin times two were negative 6. Essential Hypertension, present on admission, active -Patient's diastolic blood pressure has been in the 100's -Initial blood pressure of 131/106 -Continue medications per cardiology 7. Tobacco use -Patient reports tobacco cessation Acetaminophen for mild pain when necessary. Bowel regimen Senna and Miralax as needed for constipation. Ondansetron as needed for nausea and vomiting. DVT prophylaxis Placed on subcutaneous prophylactic anticoagulant (enoxaparin sodium 40 mg subcutaneous injection daily). High risk medications: IV morphine # CODE STATUS Full code Patient Status: Patient is admitted under inpatient status with expected length of stay greater than 2 midnights due to severity of presenting symptoms, risk of adverse event, and complexity of treatment plan. VTE Mechanical Devices: Intermittant Pneumatic CD Resuscitation Status: CPR: Attempt Resuscitation Attending Statement The patient was seen and examined together with Dr. Paz on 09/13/2016 and I agree with the history, exam and plan as outlined in the note above. . Josette Paz DO Sep 13, 2016 07:46 Vince Durham MD Sep 14, 2016 16:31
--- NOTE | 2016-09-13 22:17 | NUR ---
Pain At 2030 pt reports 11/10 pain to the lower back. PRN analgesics given. Ice pack or warm compresses offered. Pt states he does not want any of the other method of pain relief other than medications.
[2016-09-14 00:44] VITALS: BP 116/79; PULSE 98; RESP 20; O2SAT 98
[2016-09-14 03:35] LABS: BASOPHILS % (AUTO) 0.4 % (0-3); EOSINOPHILS % (AUTO) 4.9 % (0-5); MONOCYTES % (AUTO) 7.1 % (4-12); Mean Corpuscular Hemoglobin 26.2 pg (27.0-35.0); Mean Corpuscular Volume 79.5 fL (81-100); NEUTROPHILS % (AUTO) 71.2 % (40-74); Platelet Count 302 bil/L (150-400)
[2016-09-14 04:16] LABS: Magnesium 1.7 mg/dL (1.6-2.6)
[2016-09-14 04:49] VITALS: PULSE 86
[2016-09-14 05:09] VITALS: BP 109/72; PULSE 91; RESP 19; O2SAT 92
[2016-09-14 08:00] VITALS: PULSE 89
[2016-09-14] MEDS ORDERED: MeTOProlol XL 50 mg ER24 Tablet PO SCH (08:30)
[2016-09-14 09:21] VITALS: BP 117/81; PULSE 101; RESP 16; O2SAT 99
--- NOTE | 2016-09-14 10:30 | DRSVH ---
PROCEDURE: X-RAY CHEST, TWO VIEWS ([id number]) INDICATIONS: dyspnea TECHNIQUE: 2 views of the chest were acquired. COMPARISON: [facility], CT, CT ANGIO CHEST PE, 09/10/2016, 14:47. [facility] , CR, XR CHEST 1VW (PORTABLE), 09/10/2016, 12:36. [facility], CR, XR CHEST 2V AP/PA AND LAT, 08/29/2016, 9:56 PM. FINDINGS: Surgical changes and devices: None. Lungs and pleura: Small pleural effusions and basilar opacities redemonstrated. Nodular opacity agai n seen within the right upper lobe. No pneumothorax. Mediastinum: Mediastinal contours are normal. Heart size is normal. Bones and chest wall: No suspicious bony abnormalities. Soft tissues appear unremarkable. IMPRESSION: 1. Nodular opacity is seen within the right upper lobe. If indicated nuclear medicine PET scan could be performed to further exclude neoplasm or alternatively followup chest CT is again recommended to assure resolution. 2. Small bilateral pleural effusions, right greater than left. 3. Mild basilar opacities consistent with compressive atelectasis versus pneumonia. Dictated by: Ke Londono [facility] Interpreted: Erickson Sabillon MD on 09/14/2016 at 10:27 Transcribed by: DAKOTAH on 09/14/2016 at 10:29 Approved by: Erickson Sabillon M.D. on 09/14/2016 at 13:45
--- NOTE | 2016-09-14 11:11 | PCM.DIMED ---
Josette Paz DO 09/14/16 1102: Discharge Instructions Date of Service Sep 14, 2016 Dates of Hospitalization Sep 10, 2016 at 17:49 Discharge Diagnosis Discharge Diagnosis 1. Acute hypoxic respiratory failure 2. Acute systolic congestive heart failure 3. Acute elevated liver function tests 4. Right upper lobe lung mass 5. Acute chest pain 6. Essential Hypertension 7. Tobacco use Diet Heart Healthy Activity Limited until seen by PCP Call your provider Fever or Chills, Shortness of breath, Bleeding, Chest pain, Weakness (unilateral ) Patient Instructions Start taking losartan 12.5 mg daily, metoprolol 100 mg daily, spironolactone 12.5 mg daily, and furosemide 20 mg daily starting tomorrow. Follow up with Dr. Lamar in 7-10 days to discuss possibly changing your medications. [facility] to [facility] care there and follow up for your hospitalization, and in the future, discuss your chronic low back pain. You should also discuss the lung nodule to follow it in the future. Make sure to continue to not smoke cigarettes and to not use illicit drugs. Follow-up Provider: [facility] Follow-up with PCP in: 1 week Provider: Greg Lamar MD Follow-up in: 1 week Vince Durham MD 09/14/16 1637: Discharge Instructions Attending's Statement The patient was seen and examined together with Dr. Paz on 09/14/2016 and I agree with the history, exam and plan as outlined in the note above. . Josette Paz DO Sep 14, 2016 11:02 Vince Durham MD Sep 14, 2016 16:37
[2016-09-14] MEDS ORDERED: METO-274 PO (11:15)
[2016-09-14] MEDS ORDERED: SPIR25TA PO (11:15)
[2016-09-14] MEDS ORDERED: LOSA25TA2 PO (11:15)
[2016-09-14] MEDS ORDERED: FUR20 PO (11:15)
[2016-09-14] MEDS ORDERED: MeTOProlol XL 25 mg ER24 Tablet PO STA (11:15)
--- NOTE | 2016-09-14 11:22 | PCM.PNCARD ---
Subjective Date of service Sep 14, 2016 Chief Complaint dyspnea from newly diagnosed systolic heart failure History of Present Illness 46 yo M h/o remote smoking admitted with newly diagnosed systolic heart failure. Patient is critically ill and unable to provide a complete competence of story. He does state that he has had progressive dyspnea over the past month. He used methamphetamine about 3 weeks for relief but it did not help. Denies chest pain. Subjective: Patient underwent right and left heart cath and tolerated them well. He feels good and is able to walk around the hallway without much difficulty. PROBLEM LIST: # HFrEF with EF 10-15% on Echo 09/11/16 at diagnosis # LBBB, rate related # HTN # Transaminitis # Meth use # Marijuana use # Former smoker Exam Vital Signs Vital Sign - Last Date Time Temp Pulse Resp B/P Pulse Ox O2 Delivery O2 Flow Rate FiO2 09/14/16 09:21 36.5 101 16 117/81 99 Room Air 09/13/16 12:08 30 09/13/16 02:22 5.00 Intake and Output 09/13/16 09/13/16 09/14/16 Cumulative From/Thru 15:00 23:00 07:00 09/10/16 12:34 - 09/14/16 06:26 Intake Total 354 ml 546 ml 9283 ml Output Total 500 ml 560 ml 53662 ml Balance -146 ml -14 ml -5962 ml Intake Oral 354 ml 486 ml 5460 ml IV Total 60 ml 3823 ml Output Urine Total 500 ml 560 ml 94698 ml # Bowel Movements 0 0 General appearance: No apparant distress, ill appearing, cooperative HEET: Normocephalic atraumatic, no scleral icterus, tongue midline, mucous membranes moist Neck: supple Cardiovascular: regular, normal S1 and normal S2, PMI laterally displaced, no murmurs/ rubs/gallops, JVP 6cm H20, no peripheral edema Respiratory: Good aeration, decreased breath sounds at the bases bilaterally Abdomen: Soft, nontender, nondistended, + bowel sounds Neuro: Alert, no facial droop, tongue midline, no gross motor deficits Lab and Diagnostics Result Diagram: 09/14/16 0305 09/14/16 0305 X-Rays, CTs and MRIs Cath 09/13/2016: angiographically normal coronaries, normal right and left sided filling pressures with normal PA pressures and normal cardiac output Echo 09/11/2016: The left ventricle is mildly dilated. Left ventricular systolic function is severely reduced. The ejection fraction is estimated to be 10-15%. There is severe global hypokinesis of the left ventricle. The E/E' ratio is severely increased, suggesting possible increased filling pressures. The right ventricle is mildly dilated. Right ventricular systolic function is severely reduced. The right ventricular systolic pressure is estimated at 43 mmHg assuming a right atrial pressure of 15 mm Hg. Both atria are severely dilated. There is moderate mitral regurgitation. There is moderate tricuspid regurgitation. There is no other significant valvular heart disease. The aortic root is mildly dilated. CT chest 09/10/2016: 1. No pulmonary embolus. 2. Bilateral pleural effusions. 3. Masslike consolidation in the anterior right upper lobe finding may represent subsegmental atelectasis, infection/inflammation or neoplastic process. Recommend repeat CT scan of the chest in 3 months. 4. Mediastinal lymphadenopathy which could be reactive or neoplastic. 5. Bilateral lung emphysematous disease. Abd US 09/10/2016: Limited study due to patient hyperventilation, and inability to suspend respiration. Mild hepatomegaly without splenomegaly. Significant portions of the peritoneal space and the retroperitoneum are poorly seen due to bowel gas and hyperventilation. The gallbladder wall is abnormally thickened at 7-8.7 mm in thickness, but no gallstones or biliary distention is associated. As noted, however, quality of visualization for non-calcified gallstones was quite limited. Assessment & Plan Assessment 46 yo M h/o remote smoking admitted with newly diagnosed systolic heart failure: # Systolic heart failure (Heart failure with reduced ejection fraction): Patient has newly diagnosed systolic heart failure with EF 10-15%. It is biventricular HF. Etiology is unclear but it is either idiopathic or LBBB related. Meth abuse possible but less likely given patient used meth once and that too after feeling unwell from HF. He is NYHA class III and euvolemic on exam. Plan: - Uptitrate metoprolol XL from 50mg daily to 100mg daily. Good rate control is important as patient has rate related LBBB - Continue losartan 12.5mg qhs - Uptitrate spironolactone from 12.5mg daily to 25mg daily - Start furosemide 20mg daily # HTN: BP better controlled now. Manage as above. # LBBB: as above # Transaminitis: unclear etiology. HF related. Hep A, B, and C serologies negative. Abd US was unremarkable (but was poor quality). No symptoms. LFTs have improved significantly. Plan: - Continue to monitor as outpatient. # Meth abuse: patient educated about importance of staying away from illicit drugs. He states that he only used it once about 3 weeks prior to admission. Will do random urine tox screens as outpatient. # Former smoker: congratulated on successful smoking cessation Dispo: patient is okay to discharge from cardiology standpoint and should f/u with me in one week with CMP Problems: Pain Evaluation: Adequate Pain Control VTE Mechanical Devices: Intermittant Pneumatic CD Resuscitation Status: CPR: Attempt Resuscitation Greg Lamar MD Sep 14, 2016 11:22
[2016-09-14 12:29] VITALS: BP 114/73; PULSE 97; RESP 18; O2SAT 98
--- NOTE | 2016-09-14 14:46 | NUR ---
Discharge PT left with sister at 1330. All instructions gone over and understood, all questions answered. New prescriptions given along with information about each of them. Follow up apts made. Tele and IV removed x2.
--- NOTE | 2016-09-14 22:20 | PCM.DC.MED ---
Discharge Summary Date of Service Sep 14, 2016 Dates of Hospitalization Date of Hospital Admission Sep 10, 2016 at 17:49 Date of Discharge: Sep 14, 2016 Providers: Admitting Physician: Mariama Cotto MD Primary Care Physician: Jeovanny Leahy MD Attending Physician: Mariama Cotto MD Diagnosis at Time of Discharge Diagnosis at Time of Discharge 1. Acute hypoxic respiratory failure 2. Acute systolic congestive heart failure 3. Acute elevated liver function tests 4. Right upper lobe lung mass 5. Acute chest pain 6. Essential Hypertension 7. Tobacco use Procedures XRay, CTs & MRIs PROCEDURE: X-RAY CHEST ONE VIEW, PORTABLE IMPRESSION: Rounded opacity projected over the right upper lobe which may be related to summation shadow involving several overlying bony structures but pulmonary nodule cannot entirely be excluded. When clinically feasible recommend nonemergent two-view chest radiograph for further assessment. Approved by: Kiera Uribe MD, PhD on 09/10/2016 at 17:01 PROCEDURE: CT ANGIO CHEST PULMONARY EMBOLISM IMPRESSION: 1. No pulmonary embolus. 2. Bilateral pleural effusions. 3. Masslike consolidation in the anterior right upper lobe finding may represent subsegmental atelectasis, infection/inflammation or neoplastic process. Recommend repeat CT scan of the chest in 3 months. 4. Mediastinal lymphadenopathy which could be reactive or neoplastic. 5. Bilateral lung emphysematous disease. Approved by: Kiera Uribe MD, PhD on 09/10/2016 at 15:22 PROCEDURE: US ABDOMEN IMPRESSION: Limited study due to patient hyperventilation, and inability to suspend respiration. Mild hepatomegaly without splenomegaly. Significant portions of the peritoneal space and the retroperitoneum are poorly seen due to bowel gas and hyperventilation. The gallbladder wall is abnormally thickened at 7-8.7 mm in thickness, but no gallstones or biliary distention is associated. As noted, however, quality of visualization for non-calcified gallstones was quite limited. Approved by: Erickson Sabillon M.D. on 09/10/2016 at 21:56 Venous blood gas DateTimeAnalyzed 11:51:00 -_ pH ____7.419 - 7.350 7.450 pCO2 ___25.9__ -mmHg 35.0 45.0 pO2 103 -mmHg 69.0 116 HCO3- ___16.4__ -mmol/L 22.0 26.0 PROCEDURE: X-RAY CHEST, TWO VIEWS IMPRESSION: 1. Nodular opacity is seen within the right upper lobe. If indicated nuclear medicine PET scan could be performed to further exclude neoplasm or alternatively followup chest CT is again recommended to assure resolution. 2. Small bilateral pleural effusions, right greater than left. 3. Mild basilar opacities consistent with compressive atelectasis versus pneumonia. Approved by: Erickson Sabillon M.D. on 09/14/2016 at 13:45 ECG 12 Lead Sinus tachycardia, left bundle branch block Cardiac Echo Impression Echocardiogram Report Interpretation Summary The left ventricle is mildly dilated. Left ventricular systolic function is severely reduced. The ejection fraction is estimated to be 10-15%. There is severe global hypokinesis of the left ventricle. The E/E' ratio is severely increased, suggesting possible increased filling pressures. The right ventricle is mildly dilated. Right ventricular systolic function is severely reduced. The right ventricular systolic pressure is estimated at 43 mmHg assuming a right atrial pressure of 15 mm Hg. Both atria are severely dilated. There is moderate mitral regurgitation. There is moderate tricuspid regurgitation. There is no other significant valvular heart disease. The aortic root is mildly dilated. Reading Physician:PM Brief History 46 yo M h/o remote smoking admitted with newly diagnosed systolic heart failure. Patient is critically ill and unable to provide a complete competence of story. He does state that he has had progressive dyspnea over the past month. He used methamphetamine about 3 weeks for relief but it did not help. Denies chest pain. Hospital Course Mr. Alvarez is a 46-year-old male with history of tobacco use who presents with one -month history of progressive shortness of breath and weight loss over the past 1 month. Today is hospital day 2. 1. Acute hypoxic respiratory failure, present on admission. Improved. -Secondary to acute congestive heart failure. Patient de-saturated to 88% O2 on room air on admission. with oxygen mask on. This has improved with diuresis. Legionella PCR negative. Patient is positive for coronavirus. -Patient was able to lay flat without difficultly, walk around the hospital floor multiple times without issue, and his oxygen saturation was 99% on room air on day of discharge. -Discontinued piperacillin/tazobactam and intravenous levofloxacin -Infectious Disease consulted and following patient. His time and recommendations were appreciated. - See #4 below 2. Acute systolic congestive heart failure, present on admission. Improved. -Patient has no known history of cardiac disease prior to hospitalization. Likely progressive congestive heart failure exacerbated by Coronavirus infection. BNP elevated at 5521. Echocardiogram showed EF 10-15%, left ventricular and right ventricular systolic function is severely reduced, both atria are severely dilated, severe global hypokinesis of left ventricle, and moderate mitral and tricuspid regurgitation. Differential diagnosis of heart failure includes but not limited to viral cardiomyopathy, chronic valvular disease, chronic hypertension, chronic arrhythmia, amphetamine-induced. -Cardiology consulted and following patient. Their time and recommendations were appreciated. -Coronary angiogram and cardiac catheterization performed and was not concerning for coronary artery disease or elevated pressures -Patient started on losartan 12.5 mg daily, metoprolol 100 mg daily, spironolactone 12.5 mg daily, and furosemide 20 mg daily until seen by cardiology as an outpatient. 3. Acute elevated liver function tests, resent on admission. Improved. -AST increased from 89 to 1576. ALT increased from 211 to 1902, both were downtrending with AST 283, ALT 840. Alkaline phosphatase and bilirubin were normal. Abdominal ultrasound shows that the gallbladder wall was abnormally thickened but no gallstones or biliary distention. Visualization for non- calcified gallstones was quite limited. Pt did not exhibit signs of cholecystitis, so this was unlikely. Acetaminophen level was normal. Hepatitis panel was normal. This was likely secondary to hepatic congestion due to severe heart failure. 4. Right upper lob lung mass, chronicity unknown, present on admission. Active. -Etiology of lung mass is unknown. Differential diagnosis of lung mass includes but not limited to infectious granuloma such as mycobacterial or fungal, abscess -forming bacteria, hamartoma, sarcoidosis, rounded atelectasis, or a neoplastic process. Patient also reported weight loss but denied hemoptysis. -TB, strongyloides, MRSA screen, Streptococcal pneumoniae, cryptococcus, legionella, and HIV are all negative -It is recommended that patient have either a nuclear medicine PET scan or a repeat CT scan in 3 months. 5. Acute chest pain, present on admission. Resolved. -Likely secondary to respiratory distress -Patient experienced 10/10 chest pain with improvement after morphine -Sinus tachycardia with left bundle branch block on EKG -Troponin times two were negative 6. Essential Hypertension, present on admission. Improved. -Patient's diastolic blood pressure had been in the 100's -Medications as above. 7. Tobacco use -Patient reports tobacco cessation Acetaminophen for mild pain when necessary. Bowel regimen Senna and Miralax as needed for constipation. Ondansetron as needed for nausea and vomiting. DVT prophylaxis Placed on subcutaneous prophylactic anticoagulant (enoxaparin sodium 40 mg subcutaneous injection daily). High risk medications: IV morphine # CODE STATUS Full code Patient Status: Patient is admitted under inpatient status with expected length of stay greater than 2 midnights due to severity of presenting symptoms, risk of adverse event, and complexity of treatment plan. Exam Vital Signs (Last) Date Time Temp Pulse Resp B/P Pulse Ox O2 Delivery O2 Flow Rate FiO2 09/14/16 12:29 36.5 97 18 114/73 98 Room Air 09/13/16 12:08 30 09/13/16 02:22 5.00 Exam General: Well-developed, thin, appropriately interactive. No acute distress. Lying flat in bed. HEENT: Normocephalic, atraumatic. External ears without defect. Pupils equal, round, and reactive to light and accommodation. Neck: Supple with full range of motion. No jugular venous distention. Cardiovascular: Regular rate and rhythm with no murmurs, rubs, or gallops appreciated Pulmonary: Mild crackles at bases. No respiratory distress or use of accessory muscles. Abdomen: Bowel tones present. Soft, nontender, nondistended. No hepatosplenomegaly or masses appreciated. Extremities: Mild clubbing of fingers bilaterally. No cyanosis, edema, or lymphadenopathy appreciated. Skin: Warm and dry. No rash. Neurological: Cranial nerves grossly intact. Normal muscle strength, tone, and bulk. Psychiatric: Normal mood and affect. Alert and oriented to person, place, and time. Test 09/10/16 12:35 09/10/16 17:50 09/10/16 19:34 09/10/16 20:00 D-Dimer 1.9mg/L (<0.50) Hold Purple Top Tube Received (Received) Hold Blue Top Tube Received (Received) Hemoglobin A1c 6.1% (4.8-5.6) Hold [place] Top Tube Received (Received) Urine Legionella pneumophilia Ag Negative (Negative) TB Test (QFT) Gold In Tube Negative (Negative) TB Test (QFT) Incubation Comment (.) TB Test (QFT) Mitogen >10.00IU/mL (.) TB Test (QFT) Antigen 0.02IU/mL (.) TB Test (QFT) Antigen Minus Nil <0.00IU/mL (.) TB Test (QFT) TB - Nil 0.08IU/mL (.) TB Test (QFT) Positive Criteria Comment (.) TB Test (QFT) Interpretation Comment (.) Test 09/10/16 23:30 09/11/16 01:05 09/11/16 05:18 09/11/16 08:35 Urine Color Dark yellow (YELLOW) Urine Appearance Clear (CLEAR,HAZY) Urine pH 5.0 (5.0-8.0) Urine Specific [place] 1.020 (1.003-1.035) Urine Protein 30mg/dL (NEG,TRACE) Urine Glucose (UA) Negativemg/dL (NEGATIVE) Urine Ketones Negativemg/dL (NEGATIVE) Urine Occult Blood Negative (NEGATIVE) Urine Nitrite Negative (NEGATIVE) Urine Bilirubin Negative (NEGATIVE) Urine Urobilinogen Normalmg/dL (NORMAL) Urine Leukocyte Esterase Negative (NEGATIVE) Urine Opiates Screen Positive Urine Methadone Screen Negative Urine Barbiturates Screen Negative Urine Amphetamines Screen Positive Urine Benzodiazepines Screen Negative Urine Cocaine Metabolite Screen Negative Urine Cannabinoids Screen Positive Hepatitis A IgM Antibody Negative (Negative) Hepatitis B Surface Antigen Negative (Negative) Hepatitis B Core IgM Antibody Negative (Negative) Hepatitis C Antibody <0.1s/co ratio (0.0-0.9) Hepatitis C Comment Comment (.) HIV (1&2) Ag and Ab, 4th Generation Non reactive (Non Reactive) Strongyloides IgG Antibody Negative (Negative) Lactate Dehydrogenase 2257U/L (100-190) Pro-B-Type Natriuretic Peptide 5521pg/mL (0-121) Thyroid Stimulating Hormone (TSH) 1.340uIU/mL (0.450-4.500) Test 09/12/16 02:55 09/12/16 21:26 09/13/16 02:20 09/14/16 03:05 Lactic Acid Level 1.2mmol/L (0.4-2.0) Acetaminophen Level 15.0ug/mL Rx (10-25) Troponin T 0.010ug/L (0.0-0.011) Hold Epstein Top Tube Received (Received) White Blood Count 11.4th/mm3 (3.8-10.1) Red Blood Count 4.93mil/mm3 (4.40-5.80) Hemoglobin 12.9g/dL (13.8-17.2) Hematocrit 39.2% (41.0-50.0) Mean Corpuscular Volume 79.5fL (81-100) Mean Corpuscular Hemoglobin 26.2pg (27.0-35.0) Mean Corpuscular Hemoglobin Concent 32.9% (32.0-37.0) Red Cell Distribution Width 14.4% (12.3-15.4) Platelet Count 302bil/L (150-400) Neutrophils (%) (Auto) 71.2% (40-74) Lymphocytes (%) (Auto) 16.1% (14-46) Monocytes (%) (Auto) 7.1% (4-12) Eosinophils (%) (Auto) 4.9% (0-5) Basophils (%) (Auto) 0.4% (0-3) Sodium Level 135mEq/L (134-144) Potassium Level 4.3mEq/L (3.5-5.2) Chloride Level 98mEq/L (97-108) Carbon Dioxide Level 25mmol/L (18-29) Blood Urea Nitrogen 22mg/dL (6-24) Creatinine 0.76mg/dL (0.76-1.27) Estimat Glomerular Filtration Rate 118mL/min (>59) Glucose Level 97mg/dL (60-99) Calcium Level 8.0mg/dL (8.5-10.1) Magnesium Level 1.7mg/dL (1.6-2.6) Total Bilirubin 0.3mg/dL (0.0-1.2) Aspartate Amino Transf (AST/SGOT) 283U/L (0-50) Alanine Aminotransferase (ALT/SGPT) 840U/L (0-44) Alkaline Phosphatase 96U/L (25-150) Total Protein 5.1g/dL (6.4-8.4) Albumin 2.7g/dL (3.4-5.0) Procalcitonin 0.65ng/mL (0.00-0.08) Discharge Medications Discharge Medications Furosemide (Furosemide) 20 Mg Tab 20 MG PO DAILY Prescribed by: GAURAV PAZ DO Losartan Potassium (Cozaar) 25 Mg Tablet 12.5 MG PO HS Prescribed by: GAURAV PAZ DO Metoprolol Succinate ER (Metoprolol Succinate ER) 100 Mg Tab.er.24h 100 MG PO DAILY Prescribed by: GAURAV PAZ DO Spironolactone (Aldactone) 25 Mg Tablet 12.5 MG PO DAILY Prescribed by: GAURAV PAZ DO Followup Plan Discharge Diet: Heart Healthy Discharge Activity: Limited until seen by PCP Patient Instructions Start taking losartan 12.5 mg daily, metoprolol 100 mg daily, spironolactone 12.5 mg daily, and furosemide 20 mg daily starting tomorrow. Follow up with Dr. Lamar in 7-10 days to discuss possibly changing your medications. [facility] care there and follow up for your hospitalization, and in the future, discuss your chronic low back pain. You should also discuss the lung nodule to follow it in the future. Make sure to continue to not smoke cigarettes and to not use illicit drugs. Follow-up Provider: [facility] Follow-up with PCP in: 1 week Provider: Greg Lamar MD Follow-up in: 1 week Time spent Greater than 30 minutes was spent in preparation of discharge with greater than 50% of that time dedicated to patient counseling and coordination of care. . Attending Statement The patient was seen and examined together with Dr. Paz on 09/14/2016 and I agree with the history, exam and plan as outlined in the note above. . copies to: Jim Toribio DO; Greg Lamar MD, Marissa L DO Sep 14, 2016 22:20 Vince Durham MD Sep 15, 2016 07:35
[2016-09-15] MEDS ORDERED: MeTOProlol XL 50 mg ER24 Tablet PO SCH (08:30)
[2016-09-19 09:09] LABS: Cryptococcal Ag Negative (Negative)
== END 2016-09-14 13:45 | disposition home health service (06) | DRG 286 ==
LOC: SED 12:31 → UNDOADMIN 17:49 → MPC 17:49 → PCC 17:49 → MPC 19:21 → CCU 09-11 13:56 → PCC 09-12 11:12
PROVIDERS: ADMIT Specialist; ATTEND Specialist
PROC: 4A033R1 Measurement of Arterial Saturation, Peripheral, Percutaneous Approach (ICD-10-PCS; principal; 2016-09-10)
PROC: 4A023N8 Measurement of Cardiac Sampling and Pressure, Bilateral, Percutaneous Approach (ICD-10-PCS; 2016-09-13)
PROC: B2111ZZ Fluoroscopy of Multiple Coronary Arteries using Low Osmolar Contrast (ICD-10-PCS; 2016-09-13)
DX: I50.21 Acute systolic (congestive) heart failure (principal); J96.01 Acute respiratory failure with hypoxia; Z87.891 Personal history of nicotine dependence; R91.8 Other nonspecific abnormal finding of lung field; R07.9 Chest pain, unspecified; I10 Essential (primary) hypertension; R94.5 Abnormal results of liver function studies; F15.10 Other stimulant abuse, uncomplicated; I44.7 Left bundle-branch block, unspecified

== ENCOUNTER 2017-04-27 12:56 | Inpatient (IN) | payer MEDICARE ==
[2017-04-27] VITALS (8 sets, daily range): BP systolic 126–132; BP diastolic 89–107; PULSE 107–118; RESP 18–28; O2SAT 94–100
[~2017-04-27] VITALS: Ht 170.2 cm; Wt 57.6 kg
[~2017-04-27 12:56] MED LIST: FUR20 PO; LOSA25TA2 PO; METO-394 PO; SPIR25TA PO
--- NOTE | 2017-04-27 13:32 | ED.REPORT ---
HPI-Dyspnea / Wheezing Date of Service Apr 27, 2017 ED Provider: Arnaldo Barker DO Patient is a 46 year old male with a history of CHF who presents to the ED complaining of chest pain onset two days ago. Associated symptoms include shortness of breath, dyspnea on exertion and a non productive cough. He denies fever or other symptoms at this time. The patient reports that his symptoms are exacerbated when he lies flat and has been unable to sleep. He states that his symptoms are similar to the last time he was admitted for pleural effusions/CHF. Nursing Notes Stated Complaint: DIFFICULTY BREATHING Chief Complaint: Respiratory Distress Nursing Notes Reviewed: Yes Allergies: Coded Allergies: codeine (Verified Allergy, Mild, "stomach hurts", 04/27/17) Scheduled Furosemide (Furosemide) 20 Mg Tab 20 MG PO DAILY Losartan Potassium (Cozaar) 25 Mg Tablet 12.5 MG PO HS Metoprolol Succinate ER (Metoprolol Succinate ER) 100 Mg Tab.er.24h 100 MG PO DAILY Spironolactone (Aldactone) 25 Mg Tablet 12.5 MG PO DAILY General Time Seen by MD: 13:31 Chief Complaint Chest pain Hx Obtained From: Patient Arrived By: Walk-in Sudden in Onset?: Yes Onset Occurred: 2 days ago Symptom Duration: Since onset Location: : Substernal Quality: Heaviness, Painful Severity: Current: Moderate Recent Healthcare: Recent doctor visit, Recent hospitalization Similar Sx Previous: Yes Risk Factors PERC Rule Heart rate 100 or over Past Medical History Past Medical History Denies NH 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 GI: Denies: Nausea Physical Exam Initial Vital Signs Vital Signs (First) Date Time Temp Pulse Resp B/P Pulse Ox O2 Delivery O2 Flow Rate FiO2 04/27/17 12:59 36.9 113 18 130/95 100 Room Air Initial VS: Reviewed General/Constitutional: Awake, Alert Neck: Atraumatic JVD present on right Respiratory / Chest: Atraumatic, No respiratory distress crackles bilaterally Cardiovascular: Regular rhythm, Heart sounds NL Heart Rate / Rhythm: Positive: Tachycardia Abdomen: Atraumatic, Soft, Non-tender Lower Extremity / Pelvis / MS: Atraumatic, No edema Skin: Atraumatic, Color NL, No rash, Warm, Dry Neurologic: Oriented X3, Speech NL Head / Eyes: Atraumatic, Normocephalic Interpretation & Diagnostics Lab Results Interpretation Result Diagram: 04/27/17 1330 04/27/17 1330 Test 04/27/17 13:30 04/27/17 15:14 White Blood Count 10.3th/mm3 (3.8-10.1) Red Blood Count 4.70mil/mm3 (4.40-5.80) Hemoglobin 13.6g/dL (13.8-17.2) Hematocrit 39.9% (41.0-50.0) Mean Corpuscular Volume 84.9fL (81-100) Mean Corpuscular Hemoglobin 28.9pg (27.0-35.0) Mean Corpuscular Hemoglobin Concent 34.1% (32.0-37.0) Red Cell Distribution Width 12.8% (12.3-15.4) Platelet Count 257bil/L (150-400) Neutrophils (%) (Auto) 69.0% (40-74) Lymphocytes (%) (Auto) 17.4% (14-46) Monocytes (%) (Auto) 5.8% (4-12) Eosinophils (%) (Auto) 6.5% (0-5) Basophils (%) (Auto) 1.1% (0-3) D-Dimer 0.62mg/L FEU (<0.50) Sodium Level 137mEq/L (134-144) Potassium Level 4.3mEq/L (3.5-5.2) Chloride Level 100mEq/L (97-108) Carbon Dioxide Level 25mmol/L (18-29) Blood Urea Nitrogen 21mg/dL (6-24) Creatinine 1.10mg/dL (0.76-1.27) Estimat Glomerular Filtration Rate 77mL/min (>59) Glucose Level 132mg/dL (60-99) Lactic Acid Level 1.3mmol/L (0.4-2.0) Calcium Level 9.2mg/dL (8.5-10.1) Total Bilirubin 0.8mg/dL (0.0-1.2) Aspartate Amino Transf (AST/SGOT) 25U/L (0-50) Alanine Aminotransferase (ALT/SGPT) 21U/L (0-44) Alkaline Phosphatase 82U/L (25-150) Troponin T < 0.010ug/L (0.0-0.011) Pro-B-Type Natriuretic Peptide 5886pg/mL (0-121) Total Protein 7.2g/dL (6.4-8.4) Albumin 3.7g/dL (3.4-5.0) Procalcitonin 0.15ng/mL (0.00-0.08) Hold Epstein Top Tube Received (Received) Urine Color Dark yellow (YELLOW) Urine Appearance Clear (CLEAR,HAZY) Urine pH 5.5 (5.0-8.0) Urine Specific [place] >1.030 (1.003-1.035) Urine Protein 30mg/dL (NEG,TRACE) Urine Glucose (UA) Negativemg/dL (NEGATIVE) Urine Ketones Negativemg/dL (NEGATIVE) Urine Occult Blood Negative (NEGATIVE) Urine Nitrite Negative (NEGATIVE) Urine Bilirubin Negative (NEGATIVE) Urine Urobilinogen Normalmg/dL (NORMAL) Urine Leukocyte Esterase Negative (NEGATIVE) Urine RBC 0-2/hpf (0-2) Urine WBC 0-5/hpf (0-5) Urine Epithelial Cells Few/hpf (NONE-MOD) Urine Crystals None seen (NONE SEEN) Urine Bacteria Few/hpf (NONE-FEW) Urine Hyaline Casts Occasional/lpf (NONE) Urine Granular Casts None seen (NONE SEEN) Urine Waxy Casts None seen (NONE SEEN) Urine Red Blood Cell Casts None seen (NONE SEEN) Urine White Blood Cell Casts None seen (NONE SEEN) Urine Mucus Present (None Seen) Urine Trichomonas None seen (NONE SEEN) Urine Yeast None (NONE SEEN) Urinalysis Comment None Urine Culture Reflexed Not indicated ECG Interpretation ECG Interpretation: sinus tachycardia, rate 105 LBBB LVH T wave inversion in V5 ST elevation in 1 and aVL inferior lead conduction abnormalities No STEMI Time: 13:27 Interpreted by: ED physician X-Ray Chest Interpretation Chest Xray Interpretation: IMPRESSION: Slight appearance of streaky opacity within the left base is noted. This could be related to developing airspace disease such as pneumonia Dictated by: Rachel Freeman M.D. on 04/27/2017 at 13:33 Approved by: Rachel Freeman M.D. on 04/27/2017 at 13:34 Interpretation / Wet Read by: Interpret - Radiologist Re-Eval/Medical Decision Med Decision/Clinical Course 3-4 days of cough and dyspnea on exertion. Crackles in both lung dukes. Elevated BNP. Markedly abnormal EKG however recent stress test showed no coronary artery disease. He does have a rate-dependent left bundle branch block which certainly could lead EKG manifestations seen. Plan for admission for diuresis. Re-Evaluation/Progress : Time of Eval: 15:36 Re-Evaluation/Progress Note: Reviewed lab results, EKG and X-ray results. Plan to admit. Patient understands and agrees to plan. All questions were addressed. Consultation : Referral / Consult Name: Zafar Loaiza MD Consulted With: Hospitalist Call Returned at: 16:16 Hair Spinner: Agrees with eval, Agrees with plan, Accepts admit Counseled Regarding: Diagnosis, Lab results, Need for admission Discharge & Departure Impression: Primary Impression: CHF (congestive heart failure) Congestive heart failure type: unspecified congestive heart failure type Congestive heart failure chronicity: unspecified congestive heart failure chronicity Qualified Code: I50.9 - Heart failure, unspecified Disposition: ADMITTED TO HOSPITAL Discharge Condition All VS Reviewed: Yes Condition: Stable Referrals: NOPCP (PCP) Lizzette Leahy Attestation Portions of this note were transcribed by Lauryn Chawla. I, Dr. Barker personally performed the history, physical exam and medical decision-making; I reviewed and confirmed the accuracy of the information in the transcribed note. Signed by: Julien Baig, 04/27/17 copies to: Lizzette Leahy Todd P DO Apr 27, 2017 13:32 Lynn Chawla Apr 27, 2017 13:42
--- NOTE | 2017-04-27 13:36 | DRSVH ---
PROCEDURE: X-RAY CHEST, TWO VIEWS ([id number]) INDICATIONS: cough, shortness of breath TECHNIQUE: 2 views of the chest were acquired. COMPARISON: [facility], CR, XR CHEST 2VW, 09/14/2016, 7:52. FINDINGS: Surgical changes and devices: None. Lungs and pleura: There is blunting of the costophrenic angles bilaterally without appreciable interv al change, likely related to scarring. Slight increased opacity is noted within the left base. Mediastinum: Mediastinal contours are normal. Heart size is normal. Bones and chest wall: No suspicious bony abnormalities. Soft tissues appear unremarkable. IMPRESSION: Slight appearance of streaky opacity within the left base is noted. This could be related to developing airspace disease such as pneumonia Dictated by: Rachel Freeman M.D. on 04/27/2017 at 13:33 Approved by: Rachel Freeman M.D. on 04/27/2017 at 13:34
[2017-04-27 13:55] LABS: BASOPHILS % (AUTO) 1.1 % (0-3); EOSINOPHILS % (AUTO) 6.5 % (0-5); MONOCYTES % (AUTO) 5.8 % (4-12); Mean Corpuscular Hemoglobin 28.9 pg (27.0-35.0); Mean Corpuscular Volume 84.9 fL (81-100); Platelet Count 257 bil/L (150-400)
[2017-04-27 14:22] LABS: TROPONIN T < 0.010 ug/L (0.0-0.011)
[2017-04-27] MEDS ORDERED: HYDROcodone-APAP 5-325 mg Tablet PO ONE ×2 (15:45→21:30)
[2017-04-27] MEDS ORDERED: Furosemide 10 mg/mL 4 mL Inj IVPUSH ONE (15:45)
[2017-04-27 15:47] LABS: APPEARANCE,URINE CLEAR (CLEAR,HAZY); COLOR,URINE DARK YELLOW (YELLOW); PH,URINE 5.5 (5.0-8.0)
[2017-04-27 15:48] LABS: OCCULT BLOOD,URINE NEGATIVE (NEGATIVE); UROBILINOGEN,URINE NORMAL (NORMAL)
[2017-04-27] MEDS ORDERED: Ondansetron 2 mg/mL 2 mL Inj IVPUSH PRN (16:30)
--- NOTE | 2017-04-27 16:52 | PCM.EDPN ---
ED Note Date of Service Apr 27, 2017 I assumed care of this patient from Dr. Barker at approximately 2 PM. I reviewed the documentation in detail and he interviewed the patient myself and examined the patient myself. I believe his symptoms and laboratory data are most likely consistent with congestive heart failure exacerbation and I do believe he requires hospitalization at this point because of his tachypnea and tachycardia. Assessment: Acute exacerbation of congestive heart failure. Plan: Admit to the hospital. Juan Antonio Hinojosa MD Apr 27, 2017 16:52
--- NOTE | 2017-04-27 17:20 | PCM.HPMED ---
Subjective Date of Service Apr 27, 2017 Primary Provider: Admitting Physician: Zafar Loaiza MD Primary Care Physician: [facility] Attending Physician: Zafar Loaiza MD Chief Complaint: dyspnea on exertion History of Present Illness: 46-year-old male with history of severe systolic congestive heart failure in September this year, nonischemic, HTN, presented with 10 days of worsening difficulty breathing. In September 2016, a shunt was hospitalized with severe HFrEF 10-15%, LBBB, underwent ischemic workups with left heart cath, did show any obstructive disease. Patient had coronary virus infection, was thought to be the cause of cardiomyopathy. Patient received diuretics and beta blockers, MILA inhibitor, patient underwent intensive physical therapy after discharge for 2 month, stated that he graduated. He was able to maintain his daily activities with same degree before the hospitalization, walking and running. Patient denied having any electronic swellings. Patient was scheduled to see granulizing machine operator around in December, but lost FU. pt denied taking any medication at the moment. Around 10 days ago, pt woke up with sore throat, started having mild cough, dry. then for past 4days, patient noticed difficulty breathing which progressively got worse, for the past 2 days, he should gained 10 pounds, had severe orthopnea at night, decided to come to hospital. Patient had some sweating and chills last night, but denied fever. Otherwise patient had good appetite, denied nausea vomiting, diarrhea. Patient started having some voiding difficulties since he came in to hospital. Denied chest pain throughout this course ED VS 130/95, 113, 18, afebrile, 100% on RA, labs showed mild wbc, pct0.15, CXR showed mild PVC, left base opacity. pt received furosemide 20 mg IV Review of Systems: Pertinent positives as noted in history of present illness. 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 Family History No history of CAD Social History Hx Alcohol Use: No Hx Substance Use: Yes (marijuana, daily use) Smoking Status: Former Smoker Additional Information Lives alone Exam Vital Signs Vital Sign - Last Date Time Temp Pulse Resp B/P Pulse Ox O2 Delivery O2 Flow Rate FiO2 04/27/17 16:59 36.5 117 24 132/107 100 Room Air Exam NAD, comfortably laying down on the bed no JVD, MMM, no LAD tachycardic, nl s1, s2 no mrg Decreased breathing sound at the left base S,ND,NT,normoactive BS+ warm, no edema, pulses 2/2 Lab and Diagnostics Result Diagram: 04/27/17 1330 04/27/17 1330 X-Rays, CTs and MRIs PROCEDURE: X-RAY CHEST, TWO VIEWS ([id number]) INDICATIONS: cough, shortness of breath TECHNIQUE: 2 views of the chest were acquired. COMPARISON: [facility], CR, XR CHEST 2VW, 09/14/2016, 7:52. FINDINGS: Surgical changes and devices: None. Lungs and pleura: There is blunting of the costophrenic angles bilaterally without appreciable interval change, likely related to scarring. Slight increased opacity is noted within the left base. Mediastinum: Mediastinal contours are normal. Heart size is normal. Bones and chest wall: No suspicious bony abnormalities. Soft tissues appear unremarkable. IMPRESSION: Slight appearance of streaky opacity within the left base is noted. This could be related to developing airspace disease such as pneumonia Dictated by: Rachel Freeman M.D. on 04/27/2017 at 13:33 Approved by: Rachel Freeman M.D. on 04/27/2017 at 13:34 12-lead ECG Sinus tachycardia Old left bundle-branch block Assessment & Plan 46-year-old male with history of nonischemic severe systolic congestive heart failure in September this year, HTN, medicine noncompliance, former smoker presented with 10 days of worsening difficulty breathing, orthopnea, wt gain Acute, active Acute respiratory distress, POA, likely CHF exacerbation given previous severe HFrEF, versus URI from hx, possibly PE given relatively normal CXR, tachycardia , -will get d-dimer, consider CTA based on value -lasix 40mg iv, pt seems to have good response, continue bid dosing -repeat TTE, -telemetry. -strict i/o, daily wt -resp PCR Chronic, stable HTN, non-compliant, normotensive for now, likely to start BB,ACEI dispo:Patient will be admitted with inpatient status with expectation of inpatient therapy for more than 2 midnights diet:DASH dvt ppx:LMWH Full code Time spent 65 minutes Zafar Loaiza MD Apr 27, 2017 17:20
--- NOTE | 2017-04-27 18:24 | NUR ---
ADMIT Admitted a 46/M into room 3014 at 1705 following report from Adonay Chilel, ED RN. Pt arrived via stretcher, able to amb to bed ind without issue. On RA, denies any SOB at this time, states he's feeling "much better." Pt introduced to room, bed/call light controls and staff. Denies any pain/discomfort at this time but does report chronic lower back pain from a logging accident years ago. Tele place: in [facility] per radiation monitor with an IVCD. Pt reports he has not taken any of his home meds "in months." Pt reports a AL in Sep 2016 followed by a stay in the hospital for resp distress. Bed in lowest, locked position and call light in reach.
[2017-04-28] VITALS (8 sets, daily range): BP systolic 108–137; BP diastolic 83–97; PULSE 82–103; RESP 18–20; O2SAT 96–100
[2017-04-28 06:04] LABS: Magnesium 1.6 mg/dL (1.6-2.6)
[2017-04-28] MEDS ORDERED: Potassium Chloride 20 mEq SR Tablet PO ONE ×2 (07:30→09:00)
[2017-04-28] MEDS ORDERED: Magnesium Sulf 2 Gm/50mL Water 2 GM in IV Premix 1 EACH IV ONE ×2 (07:30→09:00)
--- NOTE | 2017-04-28 08:43 | PCM.PNMED ---
Subjective Date of Service Apr 28, 2017 Subjective pt feels better, tolerated supine position, but still has some difficulty when laying down, denied cough, sputum, had viral PCR neg, remained afebrile, tachycardia resolving i/o recorded -310, Exam Vital Signs Vital Sign - Last Date Time Temp Pulse Resp B/P Pulse Ox O2 Delivery O2 Flow Rate FiO2 04/28/17 06:29 91 04/28/17 05:33 36.4 18 132/90 100 Room Air Intake and Output 04/27/17 04/27/17 04/28/17 Cumulative From/Thru 15:00 23:00 07:00 04/27/17 12:59 - 04/28/17 06:21 Intake Total 590 ml 590 ml Output Total 900 ml 900 ml Balance -310 ml -310 ml Intake Oral 590 ml 590 ml Output Urine Total 900 ml 900 ml # Voids 4 4 # Bowel Movements 1 1 Exam NAD, comfortably laying down on the bed no JVD, MMM, no LAD tachycardic, nl s1, s2 no mrg Decreased breathing sound at the left base S,ND,NT,normoactive BS+ warm, no edema, pulses 2/2 IVs and Medications Medications Reviewed: Medications were reviewed in detail Lab and Diagnostics Result Diagram: 04/27/17 1330 04/28/17 0525 X-Rays, CTs and MRIs PROCEDURE: X-RAY CHEST, TWO VIEWS ([id number]) INDICATIONS: cough, shortness of breath TECHNIQUE: 2 views of the chest were acquired. COMPARISON: [facility], CR, XR CHEST 2VW, 09/14/2016, 7:52. FINDINGS: Surgical changes and devices: None. Lungs and pleura: There is blunting of the costophrenic angles bilaterally without appreciable interval change, likely related to scarring. Slight increased opacity is noted within the left base. Mediastinum: Mediastinal contours are normal. Heart size is normal. Bones and chest wall: No suspicious bony abnormalities. Soft tissues appear unremarkable. IMPRESSION: Slight appearance of streaky opacity within the left base is noted. This could be related to developing airspace disease such as pneumonia Dictated by: Rachel Freeman M.D. on 04/27/2017 at 13:33 Approved by: Rachel Freeman M.D. on 04/27/2017 at 13:34 12-lead ECG Sinus tachycardia Old left bundle-branch block Assessment & Plan 46-year-old male with history of nonischemic severe systolic congestive heart failure in September this year, HTN, medicine noncompliance, former smoker presented with 10 days of worsening difficulty breathing, orthopnea, wt gain Acute, active Acute respiratory distress, POA, likely CHF exacerbation given previous severe HFrEF, resp PCR negative. no sx and signs of PNA -d-dimer was mildly elevated but maintained SpO2 >95% w/o O2 supplement, defer CTA for PE -continue lasix 40mg iv bid,will consider tid, pt seems to have good response, replete lytes K>4, Mg>2 -repeat TTE today -telemetry. -strict i/o, daily wt Chronic, stable HTN, non-compliant, normotensive for now, likely to start BB,ACEI dispo:likely 1-2more days with diuretics course diet:DASH dvt ppx:LMWH Full code VTE Mechanical Devices: Venous Foot Pump Time spent 35min Zafar Loaiza MD Apr 28, 2017 08:43
--- NOTE | 2017-04-28 09:13 | NUR ---
Social Work- Initial Assessment Data: See Initial Assessment intervention for additional information. Pt is a 46 yr old male admitted [facility] for difficulty breathing per H&P. Pt's insurance is [employer] [facility]. Pt's PCP is [facility]. Pt's readmit risk score is not entered at this time. SW met with pt at bedside to discuss d/c planning, SW role explained. Pt alert and oriented x3. Pt's capacity for self-care assessed. Pt's designated d/c planning person is sister Moe Baptiste [phone]. Pt resides in [facility] in a mobile home with two roommates. Pt is independent at baseline with ADLs and self-care, uses no DME and drives. Pt has no SNF history. Pt has history with [facility] RN PT after last admission, pt reports that he progressed too quickly and they felt he skilled out during the first assessment. Pt has no LTC or VA benefits. Pt denies any issues obtaining his prescriptions. SW provided d/c planning checklist and wrote phone number and plan on whiteboard. Pt anticipated to d/c home with brother in law to transport, SW will continue to follow for any d/c planning needs. Assessment: Pt who is independent with ADLs and self-care Plan: Pt likely to d/c home with brother in law to transport via POV. No MD orders received at this time, no needs anticipated. SW will continue to follow for d/c needs as they arise. DEBRA Holloway Addendum: 04/28/17 at 0917 by GRACE HALL Amended: Links added.
[2017-04-28] MEDS: Furosemide 10 mg/mL 4 mL Inj IVPUSH SCH ×2 (09:51→20:49)
--- NOTE | 2017-04-28 10:16 | NUR ---
Med Rec Med Rec completed. patient stopped taking his medications when "I ran out". Patient reports that he didn't refill them because, "I was feeling better"
--- NOTE | 2017-04-28 10:45 | NUR ---
Pain Pt complains of CP 5-6/10. Provider notified. Order for STAT EKG and Nitroglycerin SL tabs obtained. Pt received one dose of the Nitro and felt a decrease in pain down to 1-2/10. Continue to monitor.
--- NOTE | 2017-04-28 13:07 | NUR ---
Case Management: IMM given and explained to pt. Mary Beth VIRGENRN
[2017-04-28] MEDS: HYDROcodone-APAP 5-325 mg Tablet PO PRN (14:23)
[2017-04-28] MEDS ORDERED: Furosemide 10 mg/mL 4 mL Inj IVPUSH ONE (14:40)
--- NOTE | 2017-04-28 16:15 | DRSVH ---
PROCEDURE: CT ANGIO CHEST PULMONARY EMBOLISM ([id number]) INDICATIONS: chest pressure severe HFrEF tachycardia TECHNIQUE: After the administration of intravenous contrast, 2 mm thick sections acquired from the pulmonary api christi to the posterior costophrenic angles. 3-dimensional maximum intensity projection (MIP) coronal a nd sagittal reformats were then acquired through the thorax. For radiation dose reduction, the follo wing was used: automated exposure control, adjustment of mA and/or kV according to patient size. COMPARISON: [facility], CT, CT ANGIO CHEST PE, 09/10/2016, 14:47. FINDINGS: Image quality: Excellent. Pulmonary arteries: Pulmonary arteries are normal in size, and demonstrate no intraluminal filling d efects to suggest central pulmonary embolism. Lungs and pleura: Mild bilateral pleural effusions, right greater than left. Mediastinum: Heart size is normal, without pericardial effusion. No mediastinal or hilar adenopathy . Thoracic aorta is normal in caliber and enhancement. Esophagus is normal in caliber, without hiat al hernia. Bones and chest wall: No suspicious bony lesions. Ribs and thoracic spine appear intact throughout. Thyroid gland is unremarkable. No axillary or supraclavicular adenopathy. Abdomen: Visualized upper abdominal solid organs appear normal in the early arterial phase of enhanc ement. IMPRESSION: 1. No pulmonary embolism. 2. Mild bilateral pleural effusions, right greater than left. Dictated by: Rachel Freeman M.D. on 04/28/2017 at 16:10 Approved by: Rachel Freeman M.D. on 04/28/2017 at 16:14
--- NOTE | 2017-04-28 17:37 | DRSVH ---
[facility] [address] [place] [address] Echocardiogram Report Name: EVENS PRIDE Date: 04/28/2017 Height: 67 in Hospital Exam Location: [facility] Weight: 132 lb Gender: Male BSA: 1.7 m2 : 1970 Age: 46 yrs BP: 132/90 mmHg Reason For Study: [id number] Ordering Physician: Performed By: Dg Frausto Referring Physician: TANK Interpretation Summary The left ventricle is moderately dilated. The ejection fraction is estimated to be <10%. There is severe global hypokinesis of the left ventricle. There is a significant dyssynchronous contraction pattern, consistent with a conduction abnormality. The right ventricle is mild to moderately dilated. Right ventricular systolic function is severely reduced. The IVC is of normal diameter and collapses greater than 50% with a sniff. This suggests a low right atrial pressure of 3 mm Hg. There is a moderate left-sided pleural effusion. No other echocardiographic abnormalities seen. Compared with the prior exam the pleural effusion is new and the HR is slower on the current exam. LV and RV function appear unchanged. 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 This is better seen on the current exam. Procedure: A two-dimensional transthoracic echocardiogram with color flow and Doppler was performed. The study quality was technically good. Comparison is made with the echocardiogram of 09/11/16. The patient was in normal sinus rhythm during the exam. Left Ventricle: There is normal left ventricular wall thickness. The left ventricle is moderately dilated. There is no thrombus. The ejection fraction is estimated to be <10%. There is severe global hypokinesis of the left ventricle. There is a significant dyssynchronous contraction pattern, consistent with a conduction abnormality. Right Ventricle: The right ventricle is mild to moderately dilated. Right ventricular systolic function is severely reduced. Atria: The left atrium is moderately dilated. Right atrial size is normal. Chiari network (normal variant) is noted. The interatrial septum is intact with no evidence for an atrial septal defect. Mitral Valve: The mitral valve is normal in structure and function. There is mild mitral regurgitation. Aortic Valve: The aortic valve is normal in structure and function. The aortic valve is trileaflet. The aortic valve opens well. There is trace aortic regurgitation. Tricuspid Valve: The tricuspid valve is normal in structure and function. There is trace tricuspid regurgitation. Pulmonic Valve: The pulmonic valve is normal in structure and function. There is trace pulmonic regurgitation. Great Vessels: The aortic root is normal size. The dimensions of the ascending aorta are normal. The pulmonary artery is normal size. The IVC is of normal diameter and collapses greater than 50% with a sniff. This suggests a low right atrial pressure of 3 mm Hg. Pericardium/ Pleura There is no pericardial effusion. There is a moderate left-sided pleural effusion. MMode/2D Measurements & Calculations LVIDd: 6.6 cm LA dimension: 4.2 cm LVIDs: 5.9 cm FS: 10.6 % LA A2 area: 28.7 cm EPSS: 2.4 cm LA A4 area: 27.2 cm IVSd: 0.82 cm LA length (vol): 6.6 cm LVPWd: 0.97 cm LA vol: 101.1 ml LA vol index: 59.6 ml/m IVC diam: 1.2 cm RA long axis: 4.4 cm Ao root diam: 3.5 cm RA area: 14.4 cm Aortic Jxn: 3.0 cm RA vol: 40.4 ml asc Aorta Diam: 3.3 cm RA : 23.9 ml/m2 EDV(MOD-sp2): 179.6 ml LV anderson. diameter/BSA (cm/m^2): 3.9 ESV(MOD-sp2): 152.8 ml EF(MOD-sp2): 14.9 % LV sys. diameter/BSA (cm/m^2): 3.5 RVD1 (basal): 4.2 cm RVD2 (mid): 3.9 cm Doppler Measurements & Calculations Ao V2 max: 80.0 cm/sec MV E max carson: 57.8 cm/sec Ao max P.6 mmHg MV A max carson: 49.1 cm/sec Ao mean P.6 mmHg MV E/A: 1.2 TR max carson: 302.4 cm/sec Med Peak E' Carson: 6.3 cm/sec TR max P.6 mmHg E/E' med: 9.1 PA V2 max: 48.4 cm/sec Lat Peak E' Carson: 5.5 cm/sec PA mean P.54 mmHg E/E' lat: 10.5 PA Accel Time: 0.09 sec E/e' average: 9.8 MV dec time: 0.15 sec Ao V2 mean: 61.8 cm/sec Ao V2 VTI: 13.1 cm PA V2 mean: 35.1 cm/sec PA pr(Accel): 36.2 mmHg Reading Physician:[id number] PM
[2017-04-29] VITALS (8 sets, daily range): BP systolic 96–133; BP diastolic 59–79; PULSE 71–86; RESP 16–20; O2SAT 97–99
[2017-04-29] MEDS: HYDROcodone-APAP 5-325 mg Tablet PO PRN ×3 (02:39→16:25)
--- NOTE | 2017-04-29 02:48 | NUR ---
NOC/Headaches 0230 pt reports of having headaches and migraines. Provide cold washcloths and applied on forehead. Administered Vicodin PRN. Continuing to monitor.
[2017-04-29 06:30] LABS: Magnesium 1.8 mg/dL (1.6-2.6)
[2017-04-29] MEDS: Furosemide 10 mg/mL 4 mL Inj IVPUSH SCH (07:40)
--- NOTE | 2017-04-29 09:08 | PCM.PNMED ---
Subjective Date of Service Apr 29, 2017 Subjective pt feels better, can tolerate supine position, admitted he did amphetamine, marijuana CTA negative for PE cr bumped more than 0.3 from yesterday, brittany held this AM consulted [id number] qd stated Exam Vital Signs Vital Sign - Last Date Time Temp Pulse Resp B/P Pulse Ox O2 Delivery O2 Flow Rate FiO2 04/29/17 08:43 36.4 73 103/73 99 Room Air 04/29/17 04:33 18 Intake and Output 04/28/17 04/28/17 04/29/17 Cumulative From/Thru 15:00 23:00 07:00 04/27/17 12:59 - 04/29/17 06:26 Intake Total 1794 ml 493 ml 2877 ml Output Total 1000 ml 350 ml 2250 ml Balance 794 ml 143 ml 627 ml Intake Oral 1744 ml 473 ml 2807 ml IV Total 50 ml 20 ml 70 ml Output Urine Total 1000 ml 350 ml 2250 ml # Voids 2 1 7 # Bowel Movements 1 2 Exam NAD, comfortably laying down on the bed no JVD, MMM, no LAD RRR, nl s1, s2 no mrg Decreased breathing sound at the left base S,ND,NT,normoactive BS+ warm, no edema, pulses 2/2 IVs and Medications Medications Reviewed: Medications were reviewed in detail Lab and Diagnostics Result Diagram: 04/27/17 1330 04/29/17 0600 X-Rays, CTs and MRIs PROCEDURE: X-RAY CHEST, TWO VIEWS ([id number]) INDICATIONS: cough, shortness of breath TECHNIQUE: 2 views of the chest were acquired. COMPARISON: [facility], CR, XR CHEST 2VW, 09/14/2016, 7:52. FINDINGS: Surgical changes and devices: None. Lungs and pleura: There is blunting of the costophrenic angles bilaterally without appreciable interval change, likely related to scarring. Slight increased opacity is noted within the left base. Mediastinum: Mediastinal contours are normal. Heart size is normal. Bones and chest wall: No suspicious bony abnormalities. Soft tissues appear unremarkable. IMPRESSION: Slight appearance of streaky opacity within the left base is noted. This could be related to developing airspace disease such as pneumonia Dictated by: Rachel Freeman M.D. on 04/27/2017 at 13:33 Approved by: Rachel Freeman M.D. on 04/27/2017 at 13:34 12-lead ECG Sinus tachycardia Old left bundle-branch block Assessment & Plan 46-year-old male with history of nonischemic severe systolic congestive heart failure in September this year, HTN, medicine noncompliance, former smoker presented with 10 days of worsening difficulty breathing, orthopnea, wt gain Acute, active Acute respiratory distress, POA, likely CHF exacerbation given previous severe HFrEF, resp PCR negative. no sx and signs of PNA. repeat TTE 04/28 showed severe global hypokinesis, EF<10%, severe dyssynchony, CTA was negative for PE. -appreciate follow up -SpO2 >95% w/o O2 supplement -s/p lasix 40mg iv bid, pt seems to have good response, replete lytes K>4, Mg>2 , held today due to ELEAZAR. -telemetry. -strict i/o, daily wt -started BB, ACEI mild ELEAZAR, developed 04/28-, contrast induced, prerenal from diuretics, -held lasix today, avoid renal toxins, renally adjust med Chronic, stable HTN, non-compliant, normotensive for now, dispo:likely 1-2more days with diuretics course, diet:DASH dvt ppx:LMWH Full code VTE Mechanical Devices: Venous Foot Pump Time spent 35min Zafar Loaiza MD Apr 29, 2017 09:08
--- NOTE | 2017-04-29 11:53 | CONS ---
[address] [address] CONSULTATION REPORT PATIENT: EVENS PRIDE : 1970 MR#: [id number] ADMIT: 04/27/2017 JOB ID: [id number] DATE OF SERVICE: 04/29/2017 IDENTIFICATION: Dr. Loaiza has asked that I consult on this 46-year-old male with a known cardiomyopathy and substance abuse. HISTORY: The patient had no cardiac history until he was admitted in September 2016 with a one month history of progressive exertional dyspnea with bilateral pleural effusions and right upper lobe lung consolidation on CT scanning with mediastinal lymphadenopathy. He had fairly significantly elevated liver function tests. His echocardiogram showed mild left ventricular enlargement with severe global LV systolic dysfunction with an EF of 10-15%, without focal abnormality. The right ventricle was also mildly enlarged with severely reduced systolic function with a pulmonary artery systolic pressure estimated in the mid 40s with a CVP of 15. He had severe biatrial enlargement with moderate mitral and tricuspid regurgitation. He was also noted to have a left bundle branch block. He was evaluated by Dr. Lamar, and the patient admitted to using methamphetamine but only once. He was subsequently treated with beta blockade, ARB, diuretics, and spironolactone, with a 6 L diuresis down to a discharge weight of 57 kg. Coronary angiography showed normal coronary anatomy without any evidence for atherosclerotic disease, and his PA pressure was 31/14, with a wedge pressure of 11. It was felt that he may have a viral cardiomyopathy given a positive titer for coronavirus. His left bundle branch block resolved during his hospitalization and he was discharged, and saw Dr. Lamar one week later. At that visit, his metoprolol was reduced from 100 mg down to 50 mg daily because of a blood pressure of 90/60, but otherwise felt well. He was referred to cardiac rehab, where he went for several sessions, apparently with good exercise capacity and he felt well, and subsequently failed follow up with Dr. aLmar. He ran out of all of his medications in February and was doing well until two weeks ago when he developed a mild cough and a scratchy throat, which he felt was a URI, but his dyspnea progressed, similar to his previous presentation and became worse while supine. He had no chest discomfort, palpitations or lightheadedness, although had some mild postural lightheadedness. He had no pedal edema noted. No weight change. He presented to the emergency department where his heart rate was 117, with a BP of 132/107. CT angiogram showed no pulmonary embolism. It showed no areas of consolidation. He underwent repeat echocardiography yesterday, which was essentially unchanged, with an ejection fraction again around 5-10%, with global hypokinesis with a dyssynchronous contraction pattern, now back in a left bundle branch block. His CVP was estimated at 3, and pulmonary artery pressures could not be estimated. 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 He had bilateral pleural effusions with mild mitral and trace tricuspid regurgitation. He was subsequently restarted on his medications and, this morning, feels significantly symptomatically improved, denying any significant dyspnea. He admits to using methamphetamine 2-3 times per week, but insists that he is not addicted to it. He has had no alcohol consumption. HOME MEDICATIONS: None on admission, but now has been restarted on: 1. Lisinopril 5 mg daily. 2. Metoprolol 25 mg b.i.d. 3. Furosemide 40 mg IV b.i.d. PAST MEDICAL HISTORY: History of tobacco addiction, but stopped eight years ago. He has a remote history of hypertension, but no diabetes. He has chronic low back pain. FAMILY HISTORY: Notable only for a brother who had "open-heart surgery" in his 60s, but the patient is uncertain as to the exact diagnosis. SOCIAL HISTORY: The patient is unemployed and lives in a trailer with two roommates in [facility]. He denies any alcohol consumption. REVIEW OF SYSTEMS: A complete review is performed and is notable for the absence of any fevers or chills, or recent weight change. Denies any vision change or ENT problems. He has had a mild cough recently but no hemoptysis. No peptic ulcer disease or GI blood loss. He does have some complaints of urinary hesitancy, likely from prostatism. Otherwise denies any genitourinary complaints. No neurologic symptoms or musculoskeletal complaints. No history of any thyroid or bleeding disorder. He denies any anxiety, but does admit to some mild depression. PHYSICAL EXAM: Thin-appearing, middle-aged male, in no distress. HR now in the 70s, occasionally up to the 100 range, although on his 1st hospital day, he had heart rates as high as 140-150. BP 103/73, significantly lower compared to admission when he was 132/107. O2 saturation is 99% on room air. His weight is down at 3.2 kg from admission, although his fluid balance appears to be positive, but likely incorrect. Skin: Warm and dry. HEENT: EOMI, without arcus. He has fair dentition. Lungs: Dullness at both bases with reduced breath sounds but no appreciable rales or wheeze. CV: Nonpalpable PMI with a regular rhythm with a 1/6 mid systolic murmur. There are no gallops or rubs. JVP is around 6-7 cm. Carotid and femoral pulses are 1-2+ bilaterally, with somewhat diminished upstroke but otherwise normal without any bruit. Dorsalis pedis pulses are 2+ bilaterally and posterior tibial pulse is nonpalpable on the right and 2+ on left. Abdomen: Soft, nondistended, nontender, without any palpable masses or organomegaly. Normal bowel tones are present without bruits. Extremities: Warm without any clubbing, cyanosis, or edema. Neuro: Moves all four extremities. Psych: Awake, alert, and oriented. LABORATORIES: White count 10.3 with hematocrit of 40%. Potassium this morning is 4.3, with a BUN of 32 and a creatinine of 1.5, up from 21 and 1.1 on admission. Glucose was 132 on admission. Troponins have remained negligible. Magnesium level this morning was 1.6. Toxicology screen was positive for amphetamines and cannabinoids. CHEST X-RAY: Shows bilateral pleural effusions with some streaky opacity at the left base. ELECTROCARDIOGRAM: Shows sinus tachycardia with a left bundle branch block and left atrial enlargement, and is unchanged from admission ECG from his last admission. IMPRESSION: 1. Severe biventricular cardiomyopathy. The etiology of this is uncertain, but I doubt that it reflects a viral cardiomyopathy as suspected at the last admission. Given his ongoing methamphetamine use, I think this is the most likely explanation, and I have strongly told him that he needs to completely abstain, and he appears to be receptive to this. His most recent echocardiogram raises an interesting question for noncompaction syndrome, but this will be a diagnosis of exclusion. We will have to see if he clinically improves with improvement in his left ventricular systolic function with medical therapy. At this point, I would simply restart his previous medications including his beta blockade, MILA inhibitor, and low-dose spironolactone with low-dose diuretic. At this point, given his current blood pressures, I would reduce his current dose of furosemide in an effort to avoid intravascular volume depletion, as I suspect it will take some time for his pleural effusions to disseminate. Once he is back on a stable regimen, he can follow up with Dr. Lamar in 1-2 weeks and continue with optimal medical therapy and abstinence from substance abuse. If he continues to have a significant cardiomyopathy after three months of optimal medical therapy and he continues to have left bundle branch block, then a biventricular implantable cardioverter defibrillator (ICD) could be considered. If there continues to be some evidence for noncompaction syndrome, then referral to [facility] for advanced therapies may be indicated, but he first needs to demonstrate that he will be compliant. 2. Substance abuse. As above, he is strongly encouraged to completely abstain. 3. Hypertension. Now appears to be better controlled. RECOMMENDATIONS: 1. Continue current dose of beta blockade, with slow incremental advancement as an outpatient. I would reduce his current dose of furosemide to an oral regimen and add low-dose spironolactone, with a BMP in around one week. Once he is on a stable oral regimen, then I suspect that he can be discharged with follow up with Dr. Lamar for continued upward titration of his MILA inhibitor and beta blockade. A repeat echocardiography can be considered in around 2-3 months, and if he continues to have poor LV systolic function, consideration can be given to a biventricular ICD. TIME SPENT: I spent 1 hour 38 minutes, reviewing the patient's previous medical records including his previous images, interviewing and examining the patient, and answering his questions.
--- NOTE | 2017-04-29 17:39 | NUR ---
Social Work-substance abuse assessment: Current Circumstances/Reason for Referral: Pt is a 46 y/o male who was admitted on 04/27/17 for difficulty breathing per H&P. order received for CD assessment. History of Substance Use:Pt has a history of meth and marijuana use. Pt states he used to use meth heavily, but has not used heavily lately. Pt states he only uses it a couple times a week and he has been mainly using this for pain management. Pt states if I would have known this would do damage on my heart I never would have done it. History of Treatment Programs:Pt has been to treatment when he was 17 years old. History of Withdrawal Symptoms: not discussed Family History:no family history History of Sobriety and Supports:Pt states his family and friends are a very good support to him. Pt states he does no associate with pt that do drugs because they are not his "true friends" Patients Perception of use:Pt states he plans on not using again. Pt states due to finding out about his health problems he will not use again. Suicide Risk assessment :Pt denies any current or past suicidal ideation. Pt has no mental health history. Recommendations for referral and follow up: Pt to discharge home when medically stable via POV. Pt declining CD resources at this time. Pt plans to stop using and has only been using for pain management. pt's family to provide transport home. No anticipated discharge needs. SW will continue to follow if needs arise. DEBRA Whitehead
--- NOTE | 2017-04-29 18:25 | NUR ---
Pain Pt c/o chronic back pain. Medicated with PRN Rx. Pt remained in bed all day. Refused to sit up in chair with meals. Denies having questions. States his current admission is related to recent dx of pneumonia and not fully completing the abx regimen as an OP.
[2017-04-30] VITALS (9 sets, daily range): BP systolic 90–118; BP diastolic 63–80; PULSE 76–91; RESP 18–20; O2SAT 96–100
[2017-04-30] MEDS: HYDROcodone-APAP 5-325 mg Tablet PO PRN ×3 (05:16→21:11)
--- NOTE | 2017-04-30 05:56 | NUR ---
Back Pain pt reports of having back pain, most of the time. Vicodin administered PRN for pain control. Denies chest pain, sob, n/v or abd discomfort. Telemetry monitoring noted SR 80's with IVCD. Pt's BP is low 90's to 100 SBP but is asymptomatic. Intentional hourly rounding.
[2017-04-30 06:32] LABS: Magnesium 1.8 mg/dL (1.6-2.6)
--- NOTE | 2017-04-30 08:51 | PCM.PNMED ---
Subjective Date of Service Apr 30, 2017 Subjective pt still has some orthopnea, chest discomfort intermittently, not feeling well, weak eating okay, no n/v Exam Vital Signs Vital Sign - Last Date Time Temp Pulse Resp B/P Pulse Ox O2 Delivery O2 Flow Rate FiO2 04/30/17 04:41 76 20 90/65 96 Room Air 04/30/17 03:30 36.2 Intake and Output 04/29/17 04/29/17 04/30/17 Cumulative From/Thru 15:00 23:00 07:00 04/27/17 12:59 - 04/30/17 06:15 Intake Total 1930 ml 473 ml 5280 ml Output Total 900 ml 3150 ml Balance 1030 ml 473 ml 2130 ml Intake Oral 1930 ml 473 ml 5210 ml IV Total 70 ml Output Urine Total 900 ml 3150 ml # Voids 1 1 9 # Bowel Movements 2 Exam NAD, comfortably laying down on the bed no JVD, MMM, no LAD RRR, nl s1, s2 no mrg Decreased breathing sound at the left base S,ND,NT,normoactive BS+ warm, no edema, pulses 2/2 IVs and Medications Medications Reviewed: Medications were reviewed in detail Lab and Diagnostics Result Diagram: 04/27/17 1330 04/30/17 0535 X-Rays, CTs and MRIs PROCEDURE: X-RAY CHEST, TWO VIEWS ([id number]) INDICATIONS: cough, shortness of breath TECHNIQUE: 2 views of the chest were acquired. COMPARISON: [facility], CR, XR CHEST 2VW, 09/14/2016, 7:52. FINDINGS: Surgical changes and devices: None. Lungs and pleura: There is blunting of the costophrenic angles bilaterally without appreciable interval change, likely related to scarring. Slight increased opacity is noted within the left base. Mediastinum: Mediastinal contours are normal. Heart size is normal. Bones and chest wall: No suspicious bony abnormalities. Soft tissues appear unremarkable. IMPRESSION: Slight appearance of streaky opacity within the left base is noted. This could be related to developing airspace disease such as pneumonia Dictated by: Rachel Freeman M.D. on 04/27/2017 at 13:33 Approved by: Rachel Freeman M.D. on 04/27/2017 at 13:34 12-lead ECG Sinus tachycardia Old left bundle-branch block Assessment & Plan 46-year-old male with history of nonischemic severe systolic congestive heart failure in September this year, HTN, medicine noncompliance, former smoker presented with 10 days of worsening difficulty breathing, orthopnea, wt gain Acute, active Acute respiratory distress, POA, likely CHF exacerbation given severe biV failure, resp PCR negative. no sx and signs of PNA. 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 Repeat TTE 04/28 showed severe global hypokinesis, EF<10%, severe dyssynchony, CTA was negative for PE. 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 -SpO2 >95% w/o O2 supplement -s/p lasix 40mg iv bid, pt seems to have good response, replete lytes K>4, Mg>2 , held 04/29 due to ELEAZAR, switched to 40mg po per cardiology -telemetry. -strict i/o, daily wt -started BB, ACEI, aldactone, will adjust based on bp, HR mild ELEAZAR, developed , contrast induced, prerenal from diuretics, -improved today after holding lasix, avoid renal toxins, renally adjust med Chronic, stable HTN, non-compliant, rather hypotensive due to medication induced, monitor closely dispo:likely 1-2more days, stabilize with oral meds diet:DASH dvt ppx:LMWH Full code VTE Mechanical Devices: Venous Foot Pump Time spent 35min Zafar Loaiza MD Apr 30, 2017 08:47
--- NOTE | 2017-04-30 16:03 | NUR ---
Social Work-readiness for discharge/multidisciplinary rounds: Data:EMR reviewed. Pt is on day 3 of hospitalization for difficulty breathing per H&P. Pt is not medically stable anticipate 1-2 more days. Pt has been up independent in his room. CD assessment has been completed, pt declining resources at this time. No discharge needs identified. SW will continue to follow if needs arise. Assessment:Pt who is independent at baseline. Plan:Pt to discharge home when medically stable via POV. CD assessment has been completed, pt declining resources at this time. No discharge needs identified. SW will continue to follow if needs arise. DEBRA Whitehead
--- NOTE | 2017-04-30 18:10 | NUR ---
Weakness Pt stayed in bed all shift. Refused to sit in chair for meals. Pt states to be weak, slept on and off all day. Chronic back pain managed with PRN Rx.
[2017-05-01 00:23] VITALS: BP 122/87; PULSE 81; RESP 18; O2SAT 98
[2017-05-01 04:31] VITALS: BP 127/93; PULSE 61; RESP 18; O2SAT 95
--- NOTE | 2017-05-01 06:02 | NUR ---
Cardiac/Anxiety Patient emotional and anxious overnight about health status and discussion with MD yesterday. Able to get some sleep. Pt remained in bed through shift. C/o difficulty breathing, some positions easier to breath in than others. Continue adjusting PO meds, then home 1-2 days from now per MD note.
[2017-05-01 06:33] LABS: BASOPHILS % (AUTO) 1.5 % (0-3); EOSINOPHILS % (AUTO) 8.2 % (0-5); MONOCYTES % (AUTO) 6.1 % (4-12); Mean Corpuscular Volume 83.2 fL (81-100); NEUTROPHILS % (AUTO) 61.9 % (40-74); Platelet Count 265 bil/L (150-400)
[2017-05-01 06:37] LABS: Magnesium 1.7 mg/dL (1.6-2.6)
[2017-05-01 09:21] VITALS: BP 124/88; PULSE 85; RESP 18; O2SAT 96
[2017-05-01 09:33] VITALS: PULSE 90
[2017-05-01] MEDS ORDERED: LISI-571 PO (10:10)
[2017-05-01] MEDS ORDERED: MeTOProlol XL 50 mg ER24 Tablet PO ONE (10:10)
[2017-05-01] MEDS ORDERED: FURO40TA4 PO (10:10)
[2017-05-01] MEDS ORDERED: METO-369 PO (10:10)
[2017-05-01] MEDS ORDERED: SPIR25TA PO (10:10)
--- NOTE | 2017-05-01 11:20 | PCM.DIMED ---
Discharge Instructions Date of Service May 01, 2017 Dates of Hospitalization Apr 27, 2017 at 16:19 Discharge Diagnosis Discharge Diagnosis acute dx Acute respiratory distress likely due to severe biventricular CHF exacerbation severe systolic biventricular CHF, likely drug induced with amphetamine mild ELEAZAR due to contrast induced, prerenal from diuretics, medication non-compliance Medication Instructions Additional med instructions please take metoprolol SR 50mg daily, Lisinopril 5mg daily, Furosemide 40mg daily, Aldactone 12.5mg daily, Diet Discharge Diet: Low fat, Low Sodium, Heart Healthy Activity Discharge Activity: No restrictions Call your provider Call your provider for: Shortness of breath, Chest pain Patient Instructions Patient Instructions You were hospitalized with difficulty of breathing, noted to have very severe congestive heart failure, worsened from the last one. You were started back on medication, seen by [employer], recommended further titration of medication in the clinic. Please note that you were scheduled for primary care physician appointment in one week, Please also follow up with [employer], Please note that it is strongly recommended to continue low-sodium diet, You were also referred to CHF clinic, in which your medication also can be adjusted. Follow-up Provider: [facility] Follow-up with PCP in: 1 week Provider: Greg Lamar MD Follow-up in: 2 weeks Zafar Loaiza MD May 01, 2017 10:38
--- NOTE | 2017-05-01 11:40 | NUR ---
Social Work-discharge: Data:EMR reviewed. Pt is on day 4 of hospitalization for difficulty breathing per H&P. Pt is medically stable for discharge. SW has met with pt and he has declined CD resources. [facility] has set up pt with outpt CHF clinic, which is done through Cardiac rehab. Pt has been up independent in his room. Pt's friend to provide transport home. No discharge needs identified. All updated and agreeable to plan. assessment:Pt who is independent at baseline. Plan:Pt to discharge home today via POV. No discharge needs identified. All updated and agreeable to plan. DEBRA Whitehead
--- NOTE | 2017-05-01 11:40 | NUR ---
Discharge Note Patient discharged, friend to transport home. IV catheter & telemetry removed. C/o baseline sob w/ activity, mentation @ baseline, no c/o pain. All items gathered, nothing left behind. Discharge instructions/medications discussed & understood. Prescriptions to be hand carried to pharmacy, PCP appt made, patient to make appt w/ Dr. Lamar/Cardiology in 2 weeks. CHF clinic nurse stopped by before discharge to coordinate CHF appt.
--- NOTE | 2017-05-01 18:18 | PCM.DC.MED ---
Discharge Summary Date of Service May 01, 2017 Dates of Hospitalization Date of Hospital Admission Apr 27, 2017 at 16:19 Date of Discharge: May 01, 2017 Providers: Admitting Physician: Zafar Villa MD Primary Care Physician: [facility] Attending Physician: Zafra Villa MD Diagnosis at Time of Discharge Diagnosis at Time of Discharge acute dx Acute respiratory distress likely due to severe biventricular CHF exacerbation severe systolic biventricular CHF, likely drug induced with amphetamine mild ELEAZAR due to contrast induced, prerenal from diuretics, medication non-compliance Consultations Cardiology, Procedures XRay, CTs & MRIs PROCEDURE: CT ANGIO CHEST PULMONARY EMBOLISM ([id number]) INDICATIONS: chest pressure severe HFrEF tachycardia TECHNIQUE: After the administration of intravenous contrast, 2 mm thick sections acquired from the pulmonary apices to the posterior costophrenic angles. 3-dimensional maximum intensity projection (MIP) coronal and sagittal reformats were then acquired through the thorax. For radiation dose reduction, the following was used: automated exposure control, adjustment of mA and/or kV according to patient size. COMPARISON: [facility], CT, CT ANGIO CHEST PE, 09/10/2016, 14:47. FINDINGS: Image quality: Excellent. Pulmonary arteries: Pulmonary arteries are normal in size, and demonstrate no intraluminal filling defects to suggest central pulmonary embolism. Lungs and pleura: Mild bilateral pleural effusions, right greater than left. Mediastinum: Heart size is normal, without pericardial effusion. No mediastinal or hilar adenopathy. Thoracic aorta is normal in caliber and enhancement. Esophagus is normal in caliber, without hiatal hernia. Bones and chest wall: No suspicious bony lesions. Ribs and thoracic spine appear intact throughout. Thyroid gland is unremarkable. No axillary or supraclavicular adenopathy. Abdomen: Visualized upper abdominal solid organs appear normal in the early arterial phase of enhancement. IMPRESSION: 1. No pulmonary embolism. 2. Mild bilateral pleural effusions, right greater than left. Dictated by: Rachel Freeman M.D. on 04/28/2017 at 16:10 Approved by: Rachel Freeman M.D. on 04/28/2017 at 16:14 PROCEDURE: X-RAY CHEST, TWO VIEWS ([id number]) INDICATIONS: cough, shortness of breath TECHNIQUE: 2 views of the chest were acquired. COMPARISON: [facility], CR, XR CHEST 2VW, 09/14/2016, 7:52. FINDINGS: Surgical changes and devices: None. Lungs and pleura: There is blunting of the costophrenic angles bilaterally without appreciable interval change, likely related to scarring. Slight increased opacity is noted within the left base. Mediastinum: Mediastinal contours are normal. Heart size is normal. Bones and chest wall: No suspicious bony abnormalities. Soft tissues appear unremarkable. IMPRESSION: Slight appearance of streaky opacity within the left base is noted. This could be related to developing airspace disease such as pneumonia Dictated by: Rachel Freeman M.D. on 04/27/2017 at 13:33 Approved by: Rachel Freeman M.D. on 04/27/2017 at 13:34 ECG 12 Lead Sinus tachycardia Old left bundle-branch block Cardiac Echo Impression Echocardiogram Report Name: EVENS PRIDE Date: 04/28/2017 Height: 67 in Hospital Exam Location: [facility] Weight: 132 lb Gender: Male BSA: 1.7 m2 : 1970 Age: 46 yrs BP: 132/90 mmHg Reason For Study: [id number] Ordering Physician: Performed By: Dg Frausto Referring Physician: TANK Interpretation Summary The left ventricle is moderately dilated. The ejection fraction is estimated to be <10%. There is severe global hypokinesis of the left ventricle. There is a significant dyssynchronous contraction pattern, consistent with a conduction abnormality. The right ventricle is mild to moderately dilated. Right ventricular systolic function is severely reduced. The IVC is of normal diameter and collapses greater than 50% with a sniff. This suggests a low right atrial pressure of 3 mm Hg. There is a moderate left-sided pleural effusion. No other echocardiographic abnormalities seen. Compared with the prior exam the pleural effusion is new and the HR is slower on the current exam. LV and RV function appear unchanged. 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 This is better seen on the current exam. Procedure: A two-dimensional transthoracic echocardiogram with color flow and Doppler was performed. The study quality was technically good. Comparison is made with the echocardiogram of 09/11/16. The patient was in normal sinus rhythm during the exam. Left Ventricle: There is normal left ventricular wall thickness. The left ventricle is moderately dilated. There is no thrombus. The ejection fraction is estimated to be <10%. There is severe global hypokinesis of the left ventricle. There is a significant dyssynchronous contraction pattern, consistent with a conduction abnormality. Right Ventricle: The right ventricle is mild to moderately dilated. Right ventricular systolic function is severely reduced. Atria: The left atrium is moderately dilated. Right atrial size is normal. Chiari network (normal variant) is noted. The interatrial septum is intact with no evidence for an atrial septal defect. Mitral Valve: The mitral valve is normal in structure and function. There is mild mitral regurgitation. Aortic Valve: The aortic valve is normal in structure and function. The aortic valve is trileaflet. The aortic valve opens well. There is trace aortic regurgitation. Tricuspid Valve: The tricuspid valve is normal in structure and function. There is trace tricuspid regurgitation. Pulmonic Valve: The pulmonic valve is normal in structure and function. There is trace pulmonic regurgitation. Great Vessels: The aortic root is normal size. The dimensions of the ascending aorta are normal. The pulmonary artery is normal size. The IVC is of normal diameter and collapses greater than 50% with a sniff. This suggests a low right atrial pressure of 3 mm Hg. Pericardium/ Pleura There is no pericardial effusion. There is a moderate left-sided pleural effusion. MMode/2D Measurements & Calculations LVIDd: 6.6 cm LA dimension: 4.2 cm LVIDs: 5.9 cm FS: 10.6 % LA A2 area: 28.7 cm EPSS: 2.4 cm LA A4 area: 27.2 cm IVSd: 0.82 cm LA length (vol): 6.6 cm LVPWd: 0.97 cm LA vol: 101.1 ml LA vol index: 59.6 ml/m IVC diam: 1.2 cm RA long axis: 4.4 cm Ao root diam: 3.5 cm RA area: 14.4 cm Aortic Jxn: 3.0 cm RA vol: 40.4 ml asc Aorta Diam: 3.3 cm RA : 23.9 ml/m2 EDV(MOD-sp2): 179.6 ml LV anderson. diameter/BSA (cm/m^2): 3.9 ESV(MOD-sp2): 152.8 ml EF(MOD-sp2): 14.9 % LV sys. diameter/BSA (cm/m^2): 3.5 RVD1 (basal): 4.2 cm RVD2 (mid): 3.9 cm Doppler Measurements & Calculations Ao V2 max: 80.0 cm/sec MV E max carson: 57.8 cm/sec Ao max P.6 mmHg MV A max carson: 49.1 cm/sec Ao mean P.6 mmHg MV E/A: 1.2 TR max carson: 302.4 cm/sec Med Peak E' Carson: 6.3 cm/sec TR max P.6 mmHg E/E' med: 9.1 PA V2 max: 48.4 cm/sec Lat Peak E' Carson: 5.5 cm/sec PA mean P.54 mmHg E/E' lat: 10.5 PA Accel Time: 0.09 sec E/e' average: 9.8 MV dec time: 0.15 sec Ao V2 mean: 61.8 cm/sec Ao V2 VTI: 13.1 cm PA V2 mean: 35.1 cm/sec PA pr(Accel): 36.2 mmHg Reading Physician:05:36 PM Brief History HPI obtained on 04/27 46-year-old male with history of severe systolic congestive heart failure in September this year, nonischemic, HTN, presented with 10 days of worsening difficulty breathing. In September 2016, a shunt was hospitalized with severe HFrEF 10-15%, LBBB, underwent ischemic workups with left heart cath, did show any obstructive disease. Patient had coronary virus infection, was thought to be the cause of cardiomyopathy. Patient received diuretics and beta blockers, MILA inhibitor, patient underwent intensive physical therapy after discharge for 2 month, stated that he graduated. He was able to maintain his daily activities with same degree before the hospitalization, walking and running. Patient denied having any electronic swellings. Patient was scheduled to see commercial intern around in December, but lost FU. pt denied taking any medication at the moment. Around 10 days ago, pt woke up with sore throat, started having mild cough, dry. then for past 4days, patient noticed difficulty breathing which progressively got worse, for the past 2 days, he should gained 10 pounds, had severe orthopnea at night, decided to come to hospital. Patient had some sweating and chills last night, but denied fever. Otherwise patient had good appetite, denied nausea vomiting, diarrhea. Patient started having some voiding difficulties since he came in to hospital. Denied chest pain throughout this course ED VS 130/95, 113, 18, afebrile, 100% on RA, labs showed mild wbc, pct0.15, CXR showed mild PVC, left base opacity. pt received furosemide 20 mg IV Hospital Course 46-year-old male with history of nonischemic severe systolic congestive heart failure in September this year, HTN, medicine noncompliance, former smoker presented with 10 days of worsening difficulty breathing, orthopnea, wt gain Patient was noted to have severe biventricular failure EF less than 10%, which was even worse than previous echo in September 2016. It was likely the patient continued his illicit drugs as urine drug screen was positive for amphetamine, likely caused his severe cardiac cardiomyopathy. CT with PE protocol was obtained given initial persistent tachycardia, did not show PE. Echo did not show any RV strains. 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 pt underwent brief course of diuresis, but developed a ELEAZAR from contrast and diuretics. lasix was decreased to 40mg daily. BB, ACEi, Aldactone were started. Patient required nitroglycerin intermittently for chest tightness, however serial troponins were negative, EKG did not show any ischemic changes but old left bundle branch block. Given his remarkable echo findings, she was strongly encouraged to stop illicit drugs, continue to follow-up with commercial intern for further medication adjustment. Plan was also to follow up with CHF clinic. Ischemic w/u was defferred given clean coronaries in September, no evidence of ACS at this time. Acute, active Acute respiratory distress, POA, likely CHF exacerbation given severe biV failure, resp PCR negative. no sx and signs of PNA. 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 Repeat TTE 04/28 showed severe global hypokinesis, EF<10%, severe dyssynchony, CTA was negative for PE. 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 -SpO2 >95% w/o O2 supplement -s/p lasix 40mg iv bid, pt seems to have good response, replete lytes K>4, Mg>2 , held 04/29 due to ELEAZAR, switched to 40mg po per cardiology -telemetry. -strict i/o, daily wt -started BB, ACEI, aldactone, will adjust based on bp, HR mild ELEAZAR, developed , contrast induced, prerenal from diuretics, -improved today after holding lasix, avoid renal toxins, renally adjust med Chronic, stable HTN, non-compliant, rather hypotensive due to medication induced, monitor closely dispo:likely 1-2more days, stabilize with oral meds diet:DASH dvt ppx:LMWH Full code Exam Vital Signs (Last) Date Time Temp Pulse Resp B/P Pulse Ox O2 Delivery O2 Flow Rate FiO2 05/01/17 09:33 90 05/01/17 09:21 35.0 18 124/88 96 Room Air Exam NAD, comfortably laying down on the bed no JVD, MMM, no LAD RRR, nl s1, s2 no mrg CTAB, no w,c S,ND,NT,normoactive BS+ warm, no edema, pulses 2/2 Test 04/27/17 13:30 04/27/17 15:14 04/28/17 16:33 04/28/17 23:38 D-Dimer 0.62mg/L FEU (<0.50) Lactic Acid Level 1.3mmol/L (0.4-2.0) Pro-B-Type Natriuretic Peptide 5886pg/mL (0-121) Procalcitonin 0.15ng/mL (0.00-0.08) Hold Epstein Top Tube Received (Received) Urine Color Dark yellow (YELLOW) Urine Appearance Clear (CLEAR,HAZY) Urine pH 5.5 (5.0-8.0) Urine Specific Douglas >1.030 (1.003-1.035) Urine Protein 30mg/dL (NEG,TRACE) Urine Glucose (UA) Negativemg/dL (NEGATIVE) Urine Ketones Negativemg/dL (NEGATIVE) Urine Occult Blood Negative (NEGATIVE) Urine Nitrite Negative (NEGATIVE) Urine Bilirubin Negative (NEGATIVE) Urine Urobilinogen Normalmg/dL (NORMAL) Urine Leukocyte Esterase Negative (NEGATIVE) Urine RBC 0-2/hpf (0-2) Urine WBC 0-5/hpf (0-5) Urine Epithelial Cells Few/hpf (NONE-MOD) Urine Crystals None seen (NONE SEEN) Urine Bacteria Few/hpf (NONE-FEW) Urine Hyaline Casts Occasional/lpf (NONE) Urine Granular Casts None seen (NONE SEEN) Urine Waxy Casts None seen (NONE SEEN) Urine Red Blood Cell Casts None seen (NONE SEEN) Urine White Blood Cell Casts None seen (NONE SEEN) Urine Mucus Present (None Seen) Urine Trichomonas None seen (NONE SEEN) Urine Yeast None (NONE SEEN) Urinalysis Comment None Urine Culture Reflexed Not indicated Troponin T < 0.010ug/L (0.0-0.011) Urine Opiates Screen Negative Urine Methadone Screen Negative Urine Barbiturates Screen Negative Urine Amphetamines Screen Positive Urine Benzodiazepines Screen Negative Urine Cocaine Metabolite Screen Negative Urine Cannabinoids Screen Positive Test 05/01/17 05:25 White Blood Count 9.2th/mm3 (3.8-10.1) Red Blood Count 4.76mil/mm3 (4.40-5.80) Hemoglobin 13.8g/dL (13.8-17.2) Hematocrit 39.6% (41.0-50.0) Mean Corpuscular Volume 83.2fL (81-100) Mean Corpuscular Hemoglobin 29.0pg (27.0-35.0) Mean Corpuscular Hemoglobin Concent 34.8% (32.0-37.0) Red Cell Distribution Width 12.7% (12.3-15.4) Platelet Count 265bil/L (150-400) Neutrophils (%) (Auto) 61.9% (40-74) Lymphocytes (%) (Auto) 22.1% (14-46) Monocytes (%) (Auto) 6.1% (4-12) Eosinophils (%) (Auto) 8.2% (0-5) Basophils (%) (Auto) 1.5% (0-3) Sodium Level 134mEq/L (134-144) Potassium Level 4.2mEq/L (3.5-5.2) Chloride Level 98mEq/L (97-108) Carbon Dioxide Level 23mmol/L (18-29) Blood Urea Nitrogen 37mg/dL (6-24) Creatinine 1.23mg/dL (0.76-1.27) Estimat Glomerular Filtration Rate 68mL/min (>59) Glucose Level 107mg/dL (60-99) Calcium Level 8.8mg/dL (8.5-10.1) Magnesium Level 1.7mg/dL (1.6-2.6) Total Bilirubin 0.3mg/dL (0.0-1.2) Aspartate Amino Transf (AST/SGOT) 27U/L (0-50) Alanine Aminotransferase (ALT/SGPT) 27U/L (0-44) Alkaline Phosphatase 85U/L (25-150) Total Protein 6.5g/dL (6.4-8.4) Albumin 3.7g/dL (3.4-5.0) Discharge Medications Discharge Medications Furosemide (Furosemide) 40 Mg Tablet 40 MG PO DAILY Prescribed by: ZAFAR VILLA MD Lisinopril (Lisinopril) 5 Mg Tablet 5 MG PO DAILY Prescribed by: ZAFAR VILLA MD Losartan Potassium (Cozaar) 25 Mg Tablet 12.5 MG PO HS Prescribed by: GAURAV SCOTT DO Metoprolol Succinate ER (Metoprolol Succinate ER) 50 Mg Tab.er.24h 50 MG PO DAILY Prescribed by: ZAFAR VILLA MD Spironolactone (Aldactone) 25 Mg Tablet 12.5 MG PO DAILY Prescribed by: ZAFAR VILLA MD Additional med instructions please take metoprolol SR 50mg daily, Lisinopril 5mg daily, Furosemide 40mg daily, Aldactone 12.5mg daily, Followup Plan Disposition: home Discharge Diet: Low fat, Low Sodium, Heart Healthy Discharge Activity: No restrictions Patient Instructions You were hospitalized with difficulty of breathing, noted to have very severe congestive heart failure, worsened from the last one. You were started back on medication, seen by [facility], recommended further titration of medication in the clinic. Please note that you were scheduled for primary care physician appointment in one week, Please also follow up with [facility], Please note that it is strongly recommended to continue low-sodium diet, You were also referred to CHF clinic, in which your medication also can be adjusted. Follow-up Provider: [facility] Follow-up with PCP in: 1 week Provider: Greg Lamar MD Follow-up in: 2 weeks Time spent 65min Zafar Villa MD May 01, 2017 18:18
== END 2017-05-01 11:41 | disposition home or self-care (01) | DRG 292 ==
LOC: SED 12:56 → OBSVTOIN 16:19 → MPC 16:19
PROVIDERS: ADMIT Internal Medicine; ATTEND Internal Medicine
DX: I50.23 Acute on chronic systolic (congestive) heart failure (principal); N17.9 Acute kidney failure, unspecified; I42.9 Cardiomyopathy, unspecified; I10 Essential (primary) hypertension; F12.90 Cannabis use, unspecified, uncomplicated; F15.10 Other stimulant abuse, uncomplicated; T50.8X5A Adverse effect of diagnostic agents, initial encounter; Z87.891 Personal history of nicotine dependence; Z91.19 Patient's noncompliance with other medical treatment and regimen